=== PATIENT | female | born 1965 | race Caucasian/White ===

== ENCOUNTER 2020-12-19 09:42 | Outpatient (REF) | payer OTHER, SELFPAY ==
[2020-12-19 11:26] LABS: Hematocrit 38.5 % (37-47); Hemoglobin 12.7 g/dl (12.0-16.0); Mean Corpuscular Hemoglobin 29.8 pg (27.0-33.0); Mean Corpuscular Volume 90.4 fL (80-98); Mean Platelet Volume 9.1 fL (9.4-12.3); Platelet Count 384 X10*3/uL (160-400); Red Blood Count 4.26 X10*6/uL (4.20-5.50); Red Cell Distribution Width 12.5 % (11.0-16.0); White Blood Count 10.7 X10*3/uL (4.8-10.8)
[2020-12-19 12:11] LABS: Alanine Aminotransferase 25 U/L (0-31); Albumin Level 4.4 g/dL (3.5-5.0); Alkaline Phosphatase 66 U/L (39-117); Anion Gap 12 (12-20); Aspartate Amino Transferase 15 U/L (5-31); Bilirubin Total 0.4 mg/dL (0.0-1.0); Blood Urea Nitrogen 16 mg/dL (9-16); Calcium 9.6 mg/dL (8.4-10.2); Carbon Dioxide 27 mmol/L (22-29); Chloride 106 mmol/L (96-108); Estimated Glomerular Filt Rate > 60; Glucose Random 265 mg/dL (60-115); Sodium 140 mmol/L (135-145); Total Protein 6.8 g/dL (6.5-8.0)
== END 2020-12-19 09:43 | disposition home or self-care (01) ==
LOC: HO.LAB 09:42
PROVIDERS: PCP Internal Medicine; Visit Provider Nurse Practitioner Family
DX: R13.10 Dysphagia, unspecified (principal); K21.9 Gastro-esophageal reflux disease without esophagitis; K59.00 Constipation, unspecified
CPT/HCPCS: 36415; 80053; 85027

== ENCOUNTER 2020-12-31 12:42 | Day surgery (SDC) | payer OTHER, SELFPAY ==
[2020-12-25 10:29] VITALS: BMI 33.8
--- NOTE | 2020-12-30 10:27 | P.CONAN_ITS ---
Documented by User: Ramya De Leon 12/30/20 10:32 HPI - Anesthesia Eval Consult details Narrative: 55yo F for Upper Endoscopy 11/28/20: Stable routine cardiac visit for BP, palpitations (increased palps r/t social stressors and no change in medication). Suspect pulmonary cause for ch ronic dyspnea r/t hx of viral pna and untreated LISSET. [facility], [facility] Past Medical History Medical History (Updated 12/30/20 @ 10:32 by Ramya De Leon) Allergic rhinitis Anxiety COVID-19 vaccine series completed Depression Dysphagia GERD (gastroesophageal reflux disease) HTN (hypertension) Hx of viral pneumonia Hyperlipidemia Hypothyroidism LISSET (obstructive sleep apnea) Palpitations Paroxysmal supraventricular tachycardia Type II diabetes mellitus Vitamin D deficiency Surgical History Surgical History (Updated 12/25/20 @ 09:32 by Rosenda Gallegos) History of carpal tunnel release Hx of elbow surgery Hx of shoulder surgery Hx of unilateral salpingectomy Social History Social History Are you a primary child day care center worker to a significant other at home: No Do you presently have visiting nurse or other home services: No Patient Tobacco Use Status: Former Tobacco user Quit Date: Age 26 Tobacco use type: Cigarette Use of substances other than those prescribed or required for medical reasons: No Substance Use Type Other:: Marijuana- Bedtime for sleep Substance Use Frequency: Daily Have you been hit, kicked, punched, or otherwise hurt by someone within the past year? If so, by whom?: No Are you DNR?: No Advance Directives: No Advance Directives Information Provided: No Advance Directives on File: No Recently lost weight without trying: No Eating poorly because of decreased appetite: No Nutrition Risks: Difficulty swallowing Patient : No Meds Allergies Allergy/AdvReac Type Severity Reaction Status Date / Time codeine Allergy Unknown NAUSEA Verified 12/31/20 13:02 clindamycin Allergy Unknown Verified 12/31/20 13:02 doxycycline Allergy Unknown Verified 12/31/20 13:02 erythromycin base Allergy Rash Verified 12/31/20 13:04 vancomycin Allergy Unknown Verified 12/31/20 13:02 Home Medications Medication Instructions Recorded Confirmed Last Taken Type atorvastatin 40 mg tablet 40 mg PO DAILY 12/19/20 12/25/20 Unknown History cetirizine 10 mg capsule 10 mg PO DAILY PRN 12/19/20 12/25/20 Unknown History cholecalciferol (vitamin D3) 25 25 mcg PO DAILY 12/19/20 12/25/20 Unknown History mcg (1,000 unit) capsule citalopram 40 mg tablet 40 mg PO DAILY 12/19/20 12/25/20 Unknown History cyclobenzaprine 10 mg tablet 10 mg PO BEDTIME 12/19/20 12/25/20 Unknown History diltiazem HCl 180 mg 180 mg PO DAILY 12/19/20 12/25/20 Unknown History capsule,extended release 24 hr docusate sodium 100 mg capsule 100 mg PO DAILY 12/19/20 12/25/20 Unknown History dulaglutide 0.75 mg/0.5 mL 0.75 mg SUBCUT QWEEK 12/19/20 12/25/20 Unknown History subcutaneous pen injector fluticasone propionate 50 1 spray INTRANASAL BID 12/19/20 12/25/20 Unknown History mcg/actuation nasal spray,suspension insulin lispro 100 unit/mL 5 unit SUBCUT TID 12/19/20 12/25/20 Unknown History subcutaneous cartridge levothyroxine 50 mcg capsule 50 mcg PO DAILY 12/19/20 12/25/20 Unknown History lorazepam 0.5 mg tablet 0.5 mg PO BEDTIME PRN 12/19/20 12/25/20 Unknown History montelukast 10 mg tablet 10 mg PO DAILY 12/19/20 12/25/20 Unknown History omeprazole 40 mg capsule,delayed 40 mg PO DAILY 12/19/20 12/25/20 Unknown History release mmnmflecj-yxiatl-givokrhh-scop 7.5 ml PO Q6H PRN 12/19/20 12/25/20 Unknown History 16.2 mg-0.1037 mg-0.0194 mg/5 mL elixir trazodone 50 mg tablet 50 mg PO DAILY 12/19/20 12/25/20 Unknown History insulin glargine [Lantus Solostar 60 unit SUBCUT BEDTIME 12/25/20 12/25/20 Unknown History U-100 Insulin] Exam Exam Date and Time: December 30, 2020 1027 Height,Weight and Vital Signs: Height 5 ft 3 in Weight 86.636 kg Pertinent Lab Results Pertinent Lab Results: Laboratory Tests 12/19/20 12/19/20 10:45 10:45 WBC 10.7 Hgb 12.7 Hct 38.5 Plt Count 384 Sodium 140 Potassium 5.0 Chloride 106 Carbon Dioxide 27 BUN 16 Creatinine 0.88 Assessment and Plan Assessment Anesthesia Assessment: Chart Reviewed Documented by User: Alley Calderon 12/31/20 13:39 [facility] Past Medical History Medical History (Updated 12/30/20 @ 10:32 by Ramya De Leon) Allergic rhinitis Anxiety COVID-19 vaccine series completed Depression Dysphagia GERD (gastroesophageal reflux disease) HTN (hypertension) Hx of viral pneumonia Hyperlipidemia Hypothyroidism LISSET (obstructive sleep apnea) Palpitations Paroxysmal supraventricular tachycardia Type II diabetes mellitus Vitamin D deficiency Surgical History Surgical History (Updated 12/25/20 @ 09:32 by Rosenda Gallegos) History of carpal tunnel release Hx of elbow surgery Hx of shoulder surgery Hx of unilateral salpingectomy Social History Social History Are you a primary child day care center worker to a significant other at home: No Do you presently have visiting nurse or other home services: No Patient Tobacco Use Status: Former Tobacco user Quit Date: Age 26 Tobacco use type: Cigarette Use of substances other than those prescribed or required for medical reasons: No Substance Use Type Other:: Marijuana- Bedtime for sleep Substance Use Frequency: Daily Have you been hit, kicked, punched, or otherwise hurt by someone within the past year? If so, by whom?: No Are you DNR?: No Advance Directives: No Advance Directives Information Provided: No Advance Directives on File: No Recently lost weight without trying: No Eating poorly because of decreased appetite: No Nutrition Risks: Difficulty swallowing Patient : No Meds Allergies Allergy/AdvReac Type Severity Reaction Status Date / Time codeine Allergy Unknown NAUSEA Verified 12/31/20 13:02 clindamycin Allergy Unknown Verified 12/31/20 13:02 doxycycline Allergy Unknown Verified 12/31/20 13:02 erythromycin base Allergy Rash Verified 12/31/20 13:04 vancomycin Allergy Unknown Verified 12/31/20 13:02 Home Medications Medication Instructions Recorded Confirmed Last Taken Type atorvastatin 40 mg tablet 40 mg PO DAILY 12/19/20 12/25/20 Unknown History cetirizine 10 mg capsule 10 mg PO DAILY PRN 12/19/20 12/25/20 Unknown History cholecalciferol (vitamin D3) 25 25 mcg PO DAILY 12/19/20 12/25/20 Unknown History mcg (1,000 unit) capsule citalopram 40 mg tablet 40 mg PO DAILY 12/19/20 12/25/20 Unknown History cyclobenzaprine 10 mg tablet 10 mg PO BEDTIME 12/19/20 12/25/20 Unknown History diltiazem HCl 180 mg 180 mg PO DAILY 12/19/20 12/25/20 Unknown History capsule,extended release 24 hr docusate sodium 100 mg capsule 100 mg PO DAILY 12/19/20 12/25/20 Unknown History dulaglutide 0.75 mg/0.5 mL 0.75 mg SUBCUT QWEEK 12/19/20 12/25/20 Unknown History subcutaneous pen injector fluticasone propionate 50 1 spray INTRANASAL BID 12/19/20 12/25/20 Unknown History mcg/actuation nasal spray,suspension insulin lispro 100 unit/mL 5 unit SUBCUT TID 12/19/20 12/25/20 Unknown History subcutaneous cartridge levothyroxine 50 mcg capsule 50 mcg PO DAILY 12/19/20 12/25/20 Unknown History lorazepam 0.5 mg tablet 0.5 mg PO BEDTIME PRN 12/19/20 12/25/20 Unknown History montelukast 10 mg tablet 10 mg PO DAILY 12/19/20 12/25/20 Unknown History omeprazole 40 mg capsule,delayed 40 mg PO DAILY 12/19/20 12/25/20 Unknown History release ylmntkrfd-nxtdez-fgbnessr-scop 7.5 ml PO Q6H PRN 12/19/20 12/25/20 Unknown History 16.2 mg-0.1037 mg-0.0194 mg/5 mL elixir trazodone 50 mg tablet 50 mg PO DAILY 12/19/20 12/25/20 Unknown History insulin glargine [Lantus Solostar 60 unit SUBCUT BEDTIME 12/25/20 12/25/20 Unknown History U-100 Insulin] Exam Airway Mallampati Class: II (Missing multiple teeth) TM Dist: >3cm Neck ROM: Full Heart: rrr Lungs: cta Assessment and Plan Assessment Anesthesia Assessment: Anesthesia Plan Discussed and Chart Reviewed Final Anesthetic Review NPO: Yes ASA Class: III Final Preanesthetic Review: No Changes in Pt Med Stat and Consent Obtained/Reviewed Patient Risk: Intermediate Procedure Risk: Intermediate Anesthetic Plan Anesthetic Plan: MAC: Disposition: Standard PACU
--- NOTE | 2020-12-31 13:01 | MHC.SHP ---
Pre-Procedural Eval Section B Chief Complaint: Dysphagia Relevant Family History (Specify if Yes): No Relevant Social History: Other (specify) (THC) Present Medications: see Short Stay Collaborative assessment Medical History: Significant History (Allergic rhinitis Anxiety COVID-19 vaccine series completed Depression Dysphagia GERD (gastroesophageal reflux disease) HTN (hypertension) Hx of viral pneumonia Hyperlipidemia Hypothyroidism LISSET (obstructive sleep apnea) Palpitations Paroxysmal supraventricular tachycardia Type II diabetes mellitus ) History of Previous Operations: Relevant previous surgery/procedure and date(s) (History of carpal tunnel release Hx of elbow surgery Hx of shoulder surgery Hx of unilateral salpingectomy) Allergies: Allergies Allergy/AdvReac Type Severity Reaction Status Date / Time codeine Allergy Unknown NAUSEA Verified 12/11/15 00:00 clindamycin Allergy Unknown Verified 12/25/20 16:19 doxycycline Allergy Unknown Verified 12/25/20 16:19 vancomycin Allergy Unknown Verified 12/25/20 16:19 Review of Systems Sugical H&P ROS: Negative: Constitution, Cardiovascular, Respiratory, Neurological, Psychiatric, Hem-Onc, Allergic/Immunologic, Gastrointestinal, Genitourinary, Musculoskeletal, Integumentary, Endocrine and Eyes/Ears/Nose/Throat Exam Surgical H&P Exam: Normal: HEENT, Normal: Heart, Normal: Lungs, Normal: Extremities, Normal: Abdomen, Normal: Skin and Normal: Neurological Plan Diagnosis/Plan: Unchanged I have reviewed the history and physical and performed a pertinent physical examination on my patient. No changes have occurred unless specified.
[2020-12-31 13:07] VITALS: BMI 33.6
[2020-12-31 13:17] VITALS: BP 134/83; PULSE 79; RESP 18; TEMP 36.9; O2SAT 97
[2020-12-31 13:19] LABS: Glucose, Whole Blood 123 mg/dL (60-115)
[2020-12-31] MEDS: Lactated Ringers 1,000 ML 100 ML IVCONT (13:27)
--- NOTE | 2020-12-31 13:43 | PM.OP ---
Brief Operative Note Date of Service: 12/31/20 Pre-op diagnosis: dysphagia Post-op diagnosis: same Procedure: see op note Surgeon: Giovanna Llanes MD Anesthesia: MAC Was an Seafood Processor used for this Procedure?: No Estimated blood loss (mL): 0 Condition: stable Disposition: PACU
--- NOTE | 2020-12-31 13:44 | W.PM.OPN ---
Operative Note Operative Note Date of Service: 12/31/20 Narrative: Procedure Description: EGD FLEXIBLE TRANSORAL UPPER GASTROINTESTINAL ENDOSCOPY UPPER ENDOSCOPY Consent: Indications for the procedure and potential complications of bleeding, perforation, reaction to medications and missed diagnosis were discussed with the patient and informed consent was obtained. Instrument: Olympus GIF H 190 J mid size upper endoscope Monitoring: Vital signs and clinical assessment, continuous EKG monitoring, Pulse oximetry, Carbon Dioxide monitoring and blood pressure monitoring were done throughout the procedure. Procedure: The patient was placed in the left lateral decubitis position and pre-procedure medications were administered and a bite block was placed. The endoscope was inserted into the mouth and advanced under direct vision to the third part of duodenum. A careful inspection was made as the upper endoscope was withdrawn including a retroflexed examination of the proximal stomach; Findings and interventions are described below. Findings: Larynx:normal Esophagus: GE junction at 30 cm, diaphragm hiatus at 35 cm, 5 cm sliding hiatal hernia noted, bx taken from distal and proximal esophagus in separate jars, also small inlet patch noted. The LES and UES were both dilated using a balloon to 20 mm, no tear seen but resistance felt. There was prominent venous bleb noted in the proximal esophagus, suspect this was what was seen on the ba swallow. Stomach: Patchy gastric erythema in the pre antrum area. Biopsies were obtained. Grade 2 flap valve on retroflexed examination of the cardia. Duodenum: Normal bulb and descending duodenum, bx taken Intervention: Biopsies as noted above, balloon dilation Impression/Findings: gastritis hiatal hernia PLAN: await bx results, consider changing PPI, review how she takes it or increase to BID consider Ct chest due to prominent venous bleb noted.
[2020-12-31 14:11] VITALS: BP 125/70; PULSE 83; RESP 16; TEMP 36.8; O2SAT 97
[2020-12-31 14:55] VITALS: BP 125/81; PULSE 77; RESP 15; TEMP 36.8; O2SAT 100
== END 2020-12-31 15:15 | disposition home or self-care (01) ==
PROVIDERS: PCP Internal Medicine; Visit Provider Internal Medicine Gastroenterology
PROC: 0DJ08ZZ Inspection of Upper Intestinal Tract, Via Natural or Artificial Opening Endoscopic (ICD-10-PCS; CPT 43235; principal; 2020-12-31 13:50)
DX: K22.2 Esophageal obstruction (principal); K29.50 Unspecified chronic gastritis without bleeding; K44.9 Diaphragmatic hernia without obstruction or gangrene; Q39.8 Other congenital malformations of esophagus; I10 Essential (primary) hypertension; G47.33 Obstructive sleep apnea (adult) (pediatric); E55.9 Vitamin D deficiency, unspecified; E11.9 Type 2 diabetes mellitus without complications; I47.9 Paroxysmal tachycardia, unspecified; E78.5 Hyperlipidemia, unspecified; J30.9 Allergic rhinitis, unspecified; Z79.4 Long term (current) use of insulin; Z79.899 Other long term (current) drug therapy
CPT/HCPCS: 43249; 43239; 82947; 88305; 88342; C1726

== ENCOUNTER → 2021-01-09 10:50 | Outpatient (BNVA) | payer OTHER, SELFPAY | PROVIDERS: PCP Internal Medicine; Visit Provider Internal Medicine Gastroenterology ==

== ENCOUNTER 2021-01-14 10:37 | Outpatient (REF) | payer OTHER, SELFPAY ==
--- NOTE | ~2021-01-14 | CT_ITS ---
EXAMINATION: CT CHEST WITH CONTRAST CLINICAL INFORMATION: Dysphagia COMPARISON: None TECHNIQUE: Multidetector volumetric CT imaging of the chest was obtained after the administration of 65 mL of Omnipaque 350 intravenous contrast without immediate adverse reactions. Axial MIP volume rendering provided. Sagittal and coronal reformatted images were obtained. This CT examination was performed using dose optimization techniques as appropriate, variously including the following: *Automated exposure control *Adjustment of mA and/or kV according to patient size (this includes techniques or standardized protocols for targeted exams where dose is matched to indication/reason for exam; i.e. extremities or head) *Use of iterative reconstruction technique DLP: 388 mGy-cm FINDINGS: LUNGS: The lungs are clear with no evidence of inflammation or nodules. MEDIASTINUM: The heart does not appear enlarged. There is a trace pericardial effusion. The thoracic aorta is normal in caliber. There are no enlarged hilar or mediastinal lymph nodes. No mass is seen. The esophagus is unremarkable. PLEURA: There is no pleural effusion. No pleural mass or thickening. AXILLA: No lymphadenopathy. UPPER ABDOMEN: There is fatty infiltration of the pancreas. There is diverticulosis of the colon. OSSEOUS STRUCTURES: There are degenerative changes of the thoracic spine curvature to the right. CT/CT chest w con IMPRESSION: No esophageal mass. Trace pericardial effusion.
[2021-01-14] MEDS: iohexoL 350 MG/ML 100 ML INFUS..BTL IV (11:29)
== END 2021-01-14 10:38 | disposition home or self-care (01) ==
LOC: HO.CT 10:37
PROVIDERS: Visit Provider Internal Medicine Gastroenterology
DX: R13.10 Dysphagia, unspecified (principal)
CPT/HCPCS: 71260; Q9967

== ENCOUNTER → 2021-04-14 10:44 | Outpatient (BNVA) | payer OTHER, SELFPAY | PROVIDERS: PCP Nurse Practitioner Family; Visit Provider Internal Medicine Gastroenterology ==

== ENCOUNTER 2021-05-11 14:37 | Outpatient (REF) | payer OTHER, SELFPAY ==
--- NOTE | ~2021-05-11 | FL_ITS ---
EXAMINATION: XR BARIUM SWALLOW CLINICAL INFORMATION: Dysphagia. COMPARISON: None. TECHNIQUE/FINDINGS: Fluoroscopic guidance was provided for modified barium swallow performed by the speech and hearing department. No aspiration or penetration was seen with any media. Please see speech and hearing report for detailed findings. FLUOROSCOPY TIME: 0.9 minutes. DOSE AREA PRODUCT: 1 Gy-cm2. FL/FL barium swallow modified IMPRESSION: Fluoroscopic guidance for modified barium swallow performed by the speech and hearing department.
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
== END 2021-05-11 14:38 | disposition home or self-care (01) ==
LOC: HO.XRAY 14:37
PROVIDERS: Visit Provider Internal Medicine Gastroenterology
DX: R13.10 Dysphagia, unspecified (principal)
CPT/HCPCS: 74230; 92611

== ENCOUNTER → 2021-06-29 09:56 | Outpatient (BNVA) | payer OTHER, SELFPAY | PROVIDERS: PCP Nurse Practitioner Family; Referring Provider Nurse Practitioner Family; Visit Provider Internal Medicine Gastroenterology ==

== ENCOUNTER → 2021-12-15 16:03 | Outpatient (BNVA) | payer MEDICAID, SELFPAY | PROVIDERS: PCP Nurse Practitioner Family; Referring Provider Nurse Practitioner Family; Visit Provider Physician Assistant | DX: Z13.89 Encounter for screening for other disorder (principal) ==

== ENCOUNTER → 2021-12-28 15:34 | Outpatient (BNVA) | payer MEDICAID, SELFPAY | PROVIDERS: PCP Nurse Practitioner Family; Visit Provider Nurse Practitioner Family | DX: Z12.11 Encounter for screening for malignant neoplasm of colon (principal); K44.9 Diaphragmatic hernia without obstruction or gangrene; R13.14 Dysphagia, pharyngoesophageal phase; K21.9 Gastro-esophageal reflux disease without esophagitis; K58.2 Mixed irritable bowel syndrome; K59.00 Constipation, unspecified | CPT/HCPCS: 99212 ==

== ENCOUNTER → 2022-01-01 14:29 | Outpatient (BNVA) | payer MEDICAID, SELFPAY | PROVIDERS: PCP Nurse Practitioner Family; Visit Provider Physician Assistant Surgical | DX: E66.9 Obesity, unspecified (principal); Z68.34 Body mass index [BMI] 34.0-34.9, adult | CPT/HCPCS: 99202 ==

== ENCOUNTER → 2022-01-13 15:15 | Outpatient (BNVA) | payer OTHER, SELFPAY | PROVIDERS: PCP Nurse Practitioner Family; Visit Provider Counselor Mental Health | DX: F41.1 Generalized anxiety disorder (principal); F50.81 Binge eating disorder; E66.9 Obesity, unspecified | CPT/HCPCS: 90791 ==

== ENCOUNTER → 2022-01-27 13:36 | Outpatient (BNVA) | payer MEDICAID, SELFPAY | PROVIDERS: PCP Nurse Practitioner Family; Visit Provider Physician Assistant Surgical | DX: E66.9 Obesity, unspecified (principal); Z68.33 Body mass index [BMI] 33.0-33.9, adult | CPT/HCPCS: 99212 ==

== ENCOUNTER 2022-02-01 12:33 | Outpatient (REF) | payer MEDICAID, SELFPAY ==
--- NOTE | ~2022-02-01 | XR_ITS ---
EXAMINATION: XR CHEST CLINICAL INFORMATION: Bariatric service evaluation. COMPARISON: Chest CT 01/14/2021 TECHNIQUE: 2 views of the chest were obtained. FINDINGS: There is a short fine linear scar left lateral base similar to CT 2020. There is no lobar or segmental airspace consolidation or ground-glass opacity or effusion. The costophrenic sulci are clear. The heart is normal in size. The hilar and mediastinal contours and visualized bony structures are unremarkable. XR/XR chest 2V IMPRESSION: Unremarkable examination.
[2022-02-01 12:49] LABS: MANUAL DIFF FLAG NO
--- NOTE | 2022-02-01 12:50 | ECG_ITS ---
Test Reason : E66.9 Blood Pressure : / mmHG Vent. Rate : 075 BPM Atrial Rate : 075 BPM P-R Int : 172 ms QRS Dur : 070 ms QT Int : 376 ms P-R-T Axes : 053 007 025 degrees QTc Int : 419 ms Normal sinus rhythm Normal EKG No previous ECGs available Referred By: Sonny Garcia Electronically Signed By:MISTI DELGADO
[2022-02-01 13:14] LABS: Basophils Percent Auto 0.2 % (0-2); Eosinophils Percent Auto 0.4 % (0-4); Hematocrit 39.2 % (37.0-47.0); Hemoglobin 12.9 g/dl (12.0-16.0); Imm Gran Abs Auto 0.03 X10*3/uL (0.00-0.03); Imm Gran Pct Auto 0.4 % (0.0-0.4); Lymphocytes Absolute Auto 1.7 X10*3/uL (1.2-4.9); Lymphocytes Percent Auto 20.9 % (20-40); Mean Corpuscular HGB Conc 32.9 g/dl (31.0-35.0); Mean Corpuscular Hemoglobin 30.1 pg (27.0-33.0); Mean Corpuscular Volume 91.4 fL (80.0-98.0); Mean Platelet Volume 8.6 fL (9.4-12.3); Monocytes Absolute Auto 0.7 X10*3/uL (0.1-1.2); Monocytes Percent Auto 7.9 % (2-11); Neutrophils Absolute Auto 5.8 x10*3/uL (2.0-8.3); Neutrophils Percent Auto 70.2 % (45-73); Platelet Count 341 X10*3/uL (160-400); Red Blood Count 4.29 X10*6/uL (4.20-5.50); Red Cell Distribution Width 13.2 % (11.0-16.0); White Blood Count 8.2 X10*3/uL (4.8-10.8)
[2022-02-01 13:35] LABS: Estimated Average Glucose 134 mg/dL; Hemoglobin A1c % 6.3 %
[2022-02-01 13:43] LABS: Alanine Aminotransferase 34 U/L (0-31); Albumin Level 4.2 g/dL (3.5-5.0); Alkaline Phosphatase 54 U/L (39-117); Anion Gap 12 (12-20); Aspartate Amino Transferase 22 U/L (5-31); Bilirubin Total 0.4 mg/dL (0.0-1.0); Blood Urea Nitrogen 17 mg/dL (9-16); C Reactive Protein 0.26 mg/dL (< or = 0.50); Calcium 9.4 mg/dL (8.4-10.2); Carbon Dioxide 26 mmol/L (22-29); Chloride 107 mmol/L (96-108); Cholesterol 165 mg/dL; Estimated Glomerular Filt Rate > 60; Glucose Random 147 mg/dL (60-115); HDL Cholesterol 51 mg/dL; Iron 70 mcg/dL (30-160); LDL Cholesterol Calculated 86 mg/dl; Percent Iron Saturation 20 % (15-50); Sodium 141 mmol/L (135-145); Total Iron Binding Capacity 343 mcg/dL (228-428); Total Protein 6.7 g/dL (6.5-8.0); Triglycerides 141 mg/dL; Unsaturated Iron Binding 273 ug/dL
[2022-02-01 13:58] LABS: Ferritin 39 ng/mL (10-250); Insulin 46 uU/mL (2-29); Vitamin D 25-OH Total 49.3 ng/mL (>30)
[2022-02-01 14:41] LABS: Folate 19.8 ng/mL (> or = 4.0); Vitamin B12 668 pg/mL (200-900)
[2022-02-02 11:22] LABS: Calcium (PTHI) 9.5 mg/dL (8.6-10.4); PTHI 50 pg/mL (16-77)
[2022-02-05 06:07] LABS: Zinc 82 mcg/dL (60-130)
[2022-02-06 01:37] LABS: Vitamin A 48 mcg/dL (38-98)
[2022-02-06 10:36] LABS: Vitamin B1 11 nmol/L (8-30)
== END 2022-02-01 12:34 | disposition home or self-care (01) ==
LOC: HO.LAB 12:33
PROVIDERS: PCP Nurse Practitioner Family; Visit Provider Physician Assistant Surgical
DX: E66.9 Obesity, unspecified (principal); F41.1 Generalized anxiety disorder; F50.81 Binge eating disorder
CPT/HCPCS: 36415; 71046; 80053; 80061; 82306; 82607; 82728; 82746; 83036; 83525; 83540; 83970; 84425; 84443; 84590; 84630; 85025; 86140; 90834; 93005

== ENCOUNTER → 2022-02-17 10:46 | Outpatient (BNVA) | payer MEDICAID, SELFPAY | PROVIDERS: PCP Nurse Practitioner Family; Visit Provider Physician Assistant Surgical | DX: E66.9 Obesity, unspecified (principal); Z68.33 Body mass index [BMI] 33.0-33.9, adult | CPT/HCPCS: 99212 ==

== ENCOUNTER → 2022-02-18 15:01 | Outpatient (BNVA) | payer MEDICAID, SELFPAY | PROVIDERS: PCP Nurse Practitioner Family; Visit Provider Dietitian, Registered | DX: E66.9 Obesity, unspecified (principal); Z71.3 Dietary counseling and surveillance | CPT/HCPCS: 97802 ==

== ENCOUNTER 2022-02-22 10:26 | Outpatient (REF) | payer MEDICAID, SELFPAY ==
--- NOTE | ~2022-02-22 | FL_ITS ---
EXAMINATION: XR FLUOROSCOPY UPPER GI WITH AIR CLINICAL INFORMATION: Obesity. Patient gives history of achalasia. COMPARISON: None TECHNIQUE: The patient was administered thin and thick barium and effervescent granules. Barium tablet was also administered. FINDINGS: There is abnormal esophageal motility. There is a small sliding-type hiatal hernia. There is mild gastroesophageal reflux. Patient had difficulty swallowing the barium tablet but it passed freely into the stomach. There is a small duodenal diverticulum arising from the second portion of the duodenum. The stomach and duodenum are otherwise normal. No fold thickening, mass, ulcer or stricture is seen. FLUOROSCOPY TIME: 1.2 minutes DOSE AREA PRODUCT: 9.7 schmid per centimeter squared. FL/FL upper GI w air IMPRESSION: Very abnormal esophageal motility. Small sliding-type hiatal hernia. Mild gastroesophageal reflux.
== END 2022-02-22 10:27 | disposition home or self-care (01) ==
LOC: HO.US 10:26
PROVIDERS: Visit Provider Physician Assistant Surgical
DX: Z01.818 Encounter for other preprocedural examination (principal); E66.9 Obesity, unspecified
CPT/HCPCS: 74246

== ENCOUNTER 2024-04-20 10:30 | Outpatient (AMB) | payer MEDICAID, SELFPAY ==
--- NOTE | 2024-04-20 10:31 | MHC.OFFVIS ---
Vital Signs 04/20/24 10:40 Height 5 ft 3 in Weight 155 lb BMI 27.5 BP 137/71 Blood Pressure Location Rt brachial Position Sitting Pulse 99 Intake Visit Reasons: Abdominal and Umbilical hernias Intake Note: Patient referred for abdominal and umbilical hernia. Present for more than 1yr. Patient c/o: pain X1yr, nausea. Physicist Cryogenics Required: No Accompanied by: Self / Same As Patient Allergies codeine Allergy (Unknown, Verified 04/20/24 10:36) NAUSEA clindamycin Allergy (Verified 04/20/24 10:36) Unknown doxycycline Allergy (Verified 04/20/24 10:36) Unknown erythromycin base Allergy (Verified 04/20/24 10:36) Rash vancomycin Allergy (Verified 04/20/24 10:36) Unknown HPI Comments Details: Patient presents for evaluation of both in umbilical left inguinal hernia. She has had these at least 1 year's time. They are both increasing in size, become more symptomatic. She would like to have him repair. Patient otherwise is tolerating a diet. She has occasional reflux symptoms. She has regular bowel habits. Chart was reviewed and patient evaluated. Patient has had multiple surgeries in the past including Orthopedic, (shoulder surgery x3), nutcracker esophagus, esophageal hiatal hernia. Diabetes among other comorbidities. [facility]LY [facility] Medical History Hx of viral pneumonia Palpitations COVID-19 vaccine series completed Dysphagia GERD (gastroesophageal reflux disease) LISSET (obstructive sleep apnea) Paroxysmal supraventricular tachycardia Vitamin D deficiency Allergic rhinitis Depression Anxiety Hypothyroidism Hyperlipidemia HTN (hypertension) Type II diabetes mellitus Surgical History (Updated 04/20/24 @ 10:58 by Jair Bray MD) H/O right knee surgery History of esophagogastroduodenoscopy (EGD) Hx of shoulder surgery Hx of elbow surgery History of carpal tunnel release Hx of unilateral salpingectomy Family History Mother Diabetes High cholesterol Social History Are you a primary home health care worker to a significant other at home: No Do you presently have visiting nurse or other home services: No Alcohol intake: never Patient Tobacco Use Status: Former Tobacco user Tobacco use type: Cigarette Physical Exam Vital Signs: Last Vital Signs Pulse 99 04/20/24 10:40 BP 137/71 04/20/24 10:40 BMI result Body Mass Index 27.5 Chest Other: Chest breath sounds bilaterally, HS 1 in 2 GI Other: Patient was examined both supine and standing with Valsalva. Very corpulent abdomen. Moderately sized pannus. Patient has her glucometer and sugar measuring devices in the right mid abdomen. Roughly 2 cm reducible umbilical hernia. Reducible left inguinal hernia. Right groin negative. Abdomen otherwise benign. Assessment & Plan Assessment & Plan (1) Umbilical hernia: Code(s): K42.9 - Umbilical hernia without obstruction or gangrene Category: Surgical (2) Left inguinal hernia: Code(s): K40.90 - Unilateral inguinal hernia, without obstruction or gangrene, not specified as recurrent Category: Surgical Plan Risks, benefits, alternatives of umbilical hernia repair with mesh and left inguinal hernia repair with mesh were reviewed with the patient and included but not limited to bleeding, infection, recurrence, numbness, pain, scarring the patient wished to proceed. All questions answered. Arrangements were made for this on a day which is convenient for her. Coding Level of Care Code New Pt Level 5 (48922) Diagnoses Umbilical hernia K42.9 Left inguinal hernia K40.90
[2024-04-20 10:40] VITALS: BP 137/71; PULSE 99; BMI 27.5
== END 2024-04-20 11:14 | disposition home or self-care (01) ==
PROVIDERS: PCP Physician Assistant Medical; Visit Provider Surgery
DX: K42.9 Umbilical hernia without obstruction or gangrene (principal); K40.90 Unilateral inguinal hernia, without obstruction or gangrene, not specified as recurrent
CPT/HCPCS: 99205

== ENCOUNTER → 2024-04-20 10:30 | Outpatient (BNVA) | payer MEDICAID, SELFPAY | PROVIDERS: PCP Physician Assistant Medical; Visit Provider Surgery | DX: K42.9 Umbilical hernia without obstruction or gangrene (principal); K40.90 Unilateral inguinal hernia, without obstruction or gangrene, not specified as recurrent | CPT/HCPCS: 99202 ==

== ENCOUNTER → 2024-05-03 09:10 | Day surgery (SDC) | payer OTHER, SELFPAY ==
--- NOTE | 2024-05-03 09:42 | PC.NURSE ---
Patient in preop. States she took her Mounjaro injection yesterday, takes weekly. This medication not on current med list. Patient cancelled per anesthesia. Patient very upset. This nurse explained the risks associated with not holding this medication for 7 days as per policy. Med list reconciled, Mounjaro added to list. Patients ride called. Dr. Bray aware.
== END ==
PROVIDERS: PCP Physician Assistant Medical; Visit Provider Surgery
DX: K42.9 Umbilical hernia without obstruction or gangrene (principal); Z53.8 Procedure and treatment not carried out for other reasons; K40.90 Unilateral inguinal hernia, without obstruction or gangrene, not specified as recurrent

== ENCOUNTER 2024-05-10 10:12 | Day surgery (SDC) | payer OTHER, SELFPAY ==
[2024-05-10] VITALS (10 sets, daily range): BP systolic 116–141; BP diastolic 59–88; PULSE 63–89; RESP 11–18; TEMP 36.4–36.9; O2SAT 95–98; BMI 26.7
--- NOTE | 2024-05-10 05:32 | MHC.SHP ---
Pre-Procedural Eval Section A - 24 Hr Update-Section A only Date of Service: 05/10/24 The patient is an INPATIENT: No Changes since office visit: No Cold of Flu in the past 2 weeks, No New Medical Problems, No Changes in Medication and No Patient answered all questions Section B - Complete if H&P > 30 days Chief Complaint: umbilical and Inguinal hernia w/o obstruction Allergies: Allergies Allergy/AdvReac Type Severity Reaction Status Date / Time codeine Allergy Unknown NAUSEA Verified 04/20/24 10:36 clindamycin Allergy Unknown Verified 04/20/24 10:36 doxycycline Allergy Unknown Verified 04/20/24 10:36 erythromycin base Allergy Rash Verified 04/20/24 10:36 vancomycin Allergy Unknown Verified 04/20/24 10:36 Review of Systems Sugical H&P ROS: Negative: Constitution, Cardiovascular, Respiratory, Neurological, Psychiatric, Hem-Onc, Allergic/Immunologic, Gastrointestinal, Genitourinary, Musculoskeletal, Integumentary, Endocrine and Eyes/Ears/Nose/Throat Exam Surgical H&P Exam: Normal: HEENT, Normal: Heart, Normal: Lungs, Normal: Extremities, Normal: Abdomen, Normal: Skin and Normal: Neurological Plan I have reviewed the history and physical and performed a pertinent physical examination on my patient. No changes have occurred unless specified. Time Spent With Patient Time: Total time managing care of this patient today ____ minutes.
[2024-05-10 10:42] LABS: Glucose, Whole Blood 114 mg/dL (60-115)
[2024-05-10] MEDS: Lactated Ringers 1,000 ML 100 ML IVCONT (10:45)
--- NOTE | 2024-05-10 13:05 | HO.ANESPROP2 ---
Documented by User: Ramya De Leon NP 05/09/24 11:20 HPI - Anesthesia Eval Consult details Narrative: 59yo F for Left Hernia Inguinal Reducible, Hernia lap Umbilical Reducible with mesh Insulin pump in situ Anesthesia Pre-Procedure Meds Is the patient on any of the following meds?: GLP1/DPP4 PMFSH Active Problems Active Problems: All Active Problems Left inguinal hernia (Acute) Umbilical hernia (Acute) Binge-eating disorder, mild (Acute) Generalized anxiety disorder (Acute) Obesity (BMI 30-39.9) (Acute) Hiatal hernia (Acute) Dysphagia (Acute) Past Medical History Medical History (Updated 05/03/24 @ 09:39 by Kim Soto RN) Insulin pump in place Hx of viral pneumonia Palpitations COVID-19 vaccine series completed Dysphagia GERD (gastroesophageal reflux disease) LISSET (obstructive sleep apnea) Paroxysmal supraventricular tachycardia Vitamin D deficiency Allergic rhinitis Depression Anxiety Hypothyroidism Hyperlipidemia HTN (hypertension) Type II diabetes mellitus Family History Family History Mother Diabetes High cholesterol Surgical History Surgical History (Updated 04/20/24 @ 10:58 by Jair Bray MD) H/O right knee surgery History of esophagogastroduodenoscopy (EGD) Hx of shoulder surgery Hx of elbow surgery History of carpal tunnel release Hx of unilateral salpingectomy Social History Social History Are you a primary healthcare management consultant to a significant other at home: No Do you presently have visiting nurse or other home services: No Alcohol intake: never Patient Tobacco Use Status: Former Tobacco user Tobacco use type: Cigarette Have you been hit, kicked, punched, or otherwise hurt by someone within the past year? If so, by whom?: No Are you DNR?: No Advance Directives: No Advance Directives Information Provided: Yes Meds Allergies Allergy/AdvReac Type Severity Reaction Status Date / Time codeine Allergy Unknown NAUSEA Verified 04/20/24 10:36 clindamycin Allergy Unknown Verified 04/20/24 10:36 doxycycline Allergy Unknown Verified 04/20/24 10:36 erythromycin base Allergy Rash Verified 04/20/24 10:36 vancomycin Allergy Unknown Verified 04/20/24 10:36 Home Medications ?Medication ?Instructions ?Recorded ?Confirmed ?Last Taken ?Type atorvastatin 40 mg tablet 40 mg PO DAILY 12/19/20 05/03/24 Unknown History cetirizine 10 mg capsule (Zyrtec) 10 mg PO DAILY PRN Allergy Symptoms 12/19/20 05/03/24 Unknown History cholecalciferol (vitamin D3) 25 25 mcg PO DAILY 12/19/20 05/03/24 Unknown History mcg (1,000 unit) capsule citalopram 40 mg tablet 40 mg PO DAILY 12/19/20 05/03/24 Unknown History cyclobenzaprine 10 mg tablet 10 mg PO BEDTIME 12/19/20 05/03/24 Unknown History diltiazem HCl 180 mg 180 mg PO DAILY 12/19/20 05/03/24 Unknown History capsule,extended release 24 hr (Cardizem CD) insulin lispro 100 unit/mL unit subcut TID PRN Hyperglycemia 12/19/20 04/20/24 Unknown History subcutaneous cartridge (Humalog U-100 Insulin) levothyroxine 50 mcg capsule 50 mcg PO DAILY 12/19/20 05/03/24 Unknown History montelukast 10 mg tablet 10 mg PO DAILY 12/19/20 05/03/24 Unknown History sertraline 50 mg tablet 50 mg PO DAILY 04/20/24 05/03/24 Unknown History trazodone 150 mg tablet mg PO 04/20/24 04/20/24 Unknown History albuterol sulfate 90 mcg/actuation inhalation 05/03/24 05/03/24 Unknown History aerosol inhaler (Ventolin HFA) budesonide-formoterol HFA 80 inhalation 05/03/24 Unknown History mcg-4.5 mcg/actuation aerosol inhaler (Symbicort) enalapril maleate 5 mg tablet 5 mg PO DAILY 05/03/24 05/03/24 Unknown History pantoprazole 40 mg tablet,delayed 40 mg PO BID 05/03/24 05/03/24 Unknown History release tiotropium bromide 2.5 2 puff inhalation DAILY 05/03/24 05/03/24 Unknown History mcg/actuation mist for inhalation (Spiriva Respimat) tirzepatide 5 mg/0.5 mL mg subcut Q4W 05/03/24 05/02/24 History subcutaneous pen injector (Shon) Exam Pertinent Lab Results Pertinent Lab Results: CBC and CMP 10/2023 from outside facility [place] Narrative Narrative: EKG 10/2023 ST @ 110 Cannot r/o inf infarct No change c/w 2019 Assessment and Plan Assessment Anesthesia Assessment: Chart Reviewed Documented by User: Shauna Mendez DO 05/10/24 13:06 HPI - Anesthesia Eval Consult details Narrative: 59yo F for Left Hernia Inguinal Reducible, Hernia lap Umbilical Reducible with mesh Insulin pump in situ Smokes marijuana nightly Anesthesia Pre-Procedure Meds Is the patient on any of the following meds?: GLP1/DPP4 PMFSH Past Medical History Medical History (Updated 05/03/24 @ 09:39 by Kim Soto RN) Insulin pump in place Hx of viral pneumonia Palpitations COVID-19 vaccine series completed Dysphagia GERD (gastroesophageal reflux disease) LISSET (obstructive sleep apnea) Paroxysmal supraventricular tachycardia Vitamin D deficiency Allergic rhinitis Depression Anxiety Hypothyroidism Hyperlipidemia HTN (hypertension) Type II diabetes mellitus Family History Family History Mother Diabetes High cholesterol Family history of problems with anesthesia: No Surgical History Surgical History (Updated 04/20/24 @ 10:58 by Jair Bray MD) H/O right knee surgery History of esophagogastroduodenoscopy (EGD) Hx of shoulder surgery Hx of elbow surgery History of carpal tunnel release Hx of unilateral salpingectomy History of Problems with Anesthesia: No Social History Social History Are you a primary healthcare management consultant to a significant other at home: No Do you presently have visiting nurse or other home services: No Alcohol intake: never Patient Tobacco Use Status: Former Tobacco user Tobacco use type: Cigarette Have you been hit, kicked, punched, or otherwise hurt by someone within the past year? If so, by whom?: No Are you DNR?: No Advance Directives: No Advance Directives Information Provided: Yes Meds Allergies Allergy/AdvReac Type Severity Reaction Status Date / Time codeine Allergy Unknown NAUSEA Verified 04/20/24 10:36 clindamycin Allergy Unknown Verified 04/20/24 10:36 doxycycline Allergy Unknown Verified 04/20/24 10:36 erythromycin base Allergy Rash Verified 04/20/24 10:36 vancomycin Allergy Unknown Verified 04/20/24 10:36 Home Medications ?Medication ?Instructions ?Recorded ?Confirmed ?Last Taken ?Type atorvastatin 40 mg tablet 40 mg PO DAILY 12/19/20 05/03/24 Unknown History cetirizine 10 mg capsule (Zyrtec) 10 mg PO DAILY PRN Allergy Symptoms 12/19/20 05/03/24 Unknown History cholecalciferol (vitamin D3) 25 25 mcg PO DAILY 12/19/20 05/03/24 Unknown History mcg (1,000 unit) capsule citalopram 40 mg tablet 40 mg PO DAILY 12/19/20 05/03/24 Unknown History cyclobenzaprine 10 mg tablet 10 mg PO BEDTIME 12/19/20 05/03/24 Unknown History diltiazem HCl 180 mg 180 mg PO DAILY 12/19/20 05/03/24 Unknown History capsule,extended release 24 hr (Cardizem CD) insulin lispro 100 unit/mL unit subcut TID PRN Hyperglycemia 12/19/20 04/20/24 Unknown History subcutaneous cartridge (Humalog U-100 Insulin) levothyroxine 50 mcg capsule 50 mcg PO DAILY 12/19/20 05/03/24 Unknown History montelukast 10 mg tablet 10 mg PO DAILY 12/19/20 05/03/24 Unknown History sertraline 50 mg tablet 50 mg PO DAILY 04/20/24 05/03/24 Unknown History trazodone 150 mg tablet mg PO 04/20/24 04/20/24 Unknown History albuterol sulfate 90 mcg/actuation inhalation 05/03/24 05/03/24 Unknown History aerosol inhaler (Ventolin HFA) budesonide-formoterol HFA 80 inhalation 05/03/24 Unknown History mcg-4.5 mcg/actuation aerosol inhaler (Symbicort) enalapril maleate 5 mg tablet 5 mg PO DAILY 05/03/24 05/03/24 Unknown History pantoprazole 40 mg tablet,delayed 40 mg PO BID 05/03/24 05/03/24 Unknown History release tiotropium bromide 2.5 2 puff inhalation DAILY 05/03/24 05/03/24 Unknown History mcg/actuation mist for inhalation (Spiriva Respimat) tirzepatide 5 mg/0.5 mL mg subcut Q4W 05/03/24 05/02/24 History subcutaneous pen injector (Shon) Exam Exam Date and Time: 05/10/24 1303 Height,Weight and Vital Signs: Height 5 ft 3 in Weight 68.492 kg Vital Signs Temperature 98.5 F 05/10/24 10:30 Pulse Rate 77 05/10/24 10:30 Respiratory Rate 18 05/10/24 10:30 Blood Pressure 116/65 05/10/24 10:30 Pulse Oximetry 98 05/10/24 10:30 Oxygen Delivery Method Room Air 05/10/24 10:30 Temperature 98.5 F 05/10/24 10:30 Pulse Rate 77 05/10/24 10:30 Respiratory Rate 18 05/10/24 10:30 Blood Pressure 116/65 05/10/24 10:30 Pulse Oximetry 98 05/10/24 10:30 Oxygen Delivery Method Room Air 05/10/24 10:30 Airway Mallampati Class: I TM Dist: >3cm Neck ROM: Full Loose/Missing/Broken Teeth: Yes (broken molar right upper jaw) Heart: S1S2 Lungs: CTAB Assessment and Plan Assessment Anesthesia Assessment: Anesthesia Plan Discussed and Chart Reviewed Final Anesthetic Review Family History of Problems with Anesthesia: No History of Problems with Anesthesia: No NPO: Yes ASA Class: II Final Preanesthetic Review: No Changes in Pt Med Stat, Meds/Allgs Chart Reviewed, Consent Obtained/Reviewed and Anes Risks/Benef Reviewed Patient Risk: Low Procedure Risk: Low Anesthetic Plan Anesthetic Plan: MAC: and Agree w/ Assess. and Plan Disposition: Standard PACU
--- NOTE | 2024-05-10 14:11 | P.OP_ITS ---
Operative Note Operative Note Date of Service: 05/10/24 Narrative: Preoperative diagnosis: [] 1. Symptomatic left inguinal hernia 2. Symptomatic umbilical hernia incarcerated Postop diagnosis: [] The same Procedure [] 1. Open left inguinal herniorrhaphy 2. Incarcerated umbilical monster iorrhaphy Surgeon: [] Asa Middle Stitcher: [] Type of Anesthesia: [] Mac Indication for surgery: [] 1. Incarcerated umbilical hernia with omental contents 2. Indirect left inguinal hernia. Corpulent abdomen Findings: [] Patient brought to the operating room, placed on operative table supine position, after an adequate level of MAC anesthesia was induced, the abdomen and left groin were prepped and draped in usual sterile fashion. Commencing in left groin, a small left para inguinal incision was made and carried down through skin, subcutaneous tissue, Darrius's fascia. External oblique fibers were opened their direction with care to isolate and preserve the ilioinguinal nerve throughout the procedure. A large reducible indirect hernia was demonstrated. No direct hernia. The indirect hernia was reduced. A Bard plug was placed in this defect and sutured inferiorly to the inguinal ligament, and superiorly to the transversalis fascia using interrupted 0 Ethibond suture. Wound was irrigated, secured hemostasis, and closed in the following manner; external oblique fascia was closed using running 2-0 Vicryl suture. Darrius's fascia was reapproximated using interrupted 3-0 Vicryl suture. Interrupted inverted deep dermal 3-0 Vicryl sutures followed by running subcuticular 4-0 Vicryl sutures were placed. Steri-Strips sterile dressings were applied. Next incarcerated umbilical hernia was approached using an infraumbilical incision which was carried down through skin, subcutaneous tissue, where hernia sac was identified, dissected off the posterior aspect of the umbilicus, and dissected down the fascia. Sac was opened were incarcerated omental contents were amputated using Bovie. Fascia margins were circumferentially cleared. A Bard mesh was placed in this defect, and the superficial layer of the mesh was circumferentially sutured to the surrounding fascia using 0 Ethibond suture. At completion, mesh was in good position with no gaps or tension. Wound was irrigated, secured hemostasis, and closed in the following manner; posterior aspect of the umbilicus was tacked to the wound floor using interrupted 3-0 Vicryl suture. Skin was closed using interrupted inverted dermal 3-0 Vicryl sutures followed by Steri-Strips and sterile dressings. Wounds were infiltrated at the beginning and at the end with 0.5% Marcaine/1% lidocaine. Sponge, needle, and instrument counts reported correct. Patient tolerated the procedure well and emerged from anesthesia stable condition. EBL minimal
[2024-05-10] MEDS: oxyCODONE HCl Immed Release 5 MG TABLET PO (14:24)
[2024-05-10] MEDS: fentaNYL citrate/PF 100 MCG/2 ML VIAL 50 MCG IVPUSH ×2 (14:32→14:37)
== END 2024-05-10 15:55 | disposition home or self-care (01) ==
PROVIDERS: PCP Physician Assistant Medical; Visit Provider Surgery
PROC: (CPT 49505; principal; 2024-05-10 13:00)
PROC: (CPT 49505; 2024-05-10 13:00)
DX: K40.90 Unilateral inguinal hernia, without obstruction or gangrene, not specified as recurrent (principal); K42.9 Umbilical hernia without obstruction or gangrene; K42.0 Umbilical hernia with obstruction, without gangrene; K44.9 Diaphragmatic hernia without obstruction or gangrene; K21.9 Gastro-esophageal reflux disease without esophagitis; I10 Essential (primary) hypertension; I47.10 Supraventricular tachycardia, unspecified; E11.9 Type 2 diabetes mellitus without complications; F41.1 Generalized anxiety disorder; F50.819 Binge eating disorder, unspecified; Z68.27 Body mass index [BMI] 27.0-27.9, adult; G47.33 Obstructive sleep apnea (adult) (pediatric); Z79.4 Long term (current) use of insulin; Z96.41 Presence of insulin pump (external) (internal); Z79.899 Other long term (current) drug therapy; Z88.5 Allergy status to narcotic agent; Z88.1 Allergy status to other antibiotic agents; Z87.891 Personal history of nicotine dependence
CPT/HCPCS: 49505; 49592; 82947; 88304; C1781; J0690; J1100; J1885; J2003; J2250; J2405; J2704; J2795; J3010

== ENCOUNTER → 2024-05-10 10:12 | Outpatient (BNV) | payer OTHER, SELFPAY | PROVIDERS: PCP Physician Assistant Medical; Visit Provider Surgery | DX: K42.0 Umbilical hernia with obstruction, without gangrene (principal); K40.90 Unilateral inguinal hernia, without obstruction or gangrene, not specified as recurrent | CPT/HCPCS: 49505; 49594 ==

== ENCOUNTER 2024-05-21 11:33 | Outpatient (AMB) | payer OTHER, SELFPAY ==
--- NOTE | 2024-05-21 11:42 | A.OFFVIS_ITS ---
Intake Visit Reasons: S/P LIH & umbilical hernia w/mesh Intake Note: Patient here s/p LIH and umbilical hernia w/mesh repair. Patient c/o: covered incision sites with gauze and tegaderm after noticing some oozing. Only took ibuprofen as got sick, vomiting, dizziness with Vicodin. Requesting something stronger than ibuprofen. SX: 05-10-2024. Food And Drug Inspector Required: No Accompanied by: Self / Same As Patient Allergies codeine Allergy (Unknown, Verified 05/21/24 11:42) NAUSEA clindamycin Allergy (Verified 05/21/24 11:42) Unknown doxycycline Allergy (Verified 05/21/24 11:42) Unknown erythromycin base Allergy (Verified 05/21/24 11:42) Rash vancomycin Allergy (Verified 05/21/24 11:42) Unknown HPI Comments Details: Patient presents status post umbilical and left inguinal hernia repair. Aside from incisional discomfort which is improving she is doing well. She is currently tolerating her diet. He is having regular bowel habits. She is increasing her activity level. [facility] Medical History (Updated 05/03/24 @ 09:39 by Kim Soto RN) Insulin pump in place Hx of viral pneumonia Palpitations COVID-19 vaccine series completed Dysphagia GERD (gastroesophageal reflux disease) LISSET (obstructive sleep apnea) Paroxysmal supraventricular tachycardia Vitamin D deficiency Allergic rhinitis Depression Anxiety Hypothyroidism Hyperlipidemia HTN (hypertension) Type II diabetes mellitus Surgical History (Updated 05/21/24 @ 12:02 by Jair Bray MD) H/O right knee surgery History of esophagogastroduodenoscopy (EGD) Hx of shoulder surgery Hx of elbow surgery History of carpal tunnel release Hx of unilateral salpingectomy Family History Mother Diabetes High cholesterol Social History Are you a primary tire care manager to a significant other at home: No Do you presently have visiting nurse or other home services: No Alcohol intake: never Patient Tobacco Use Status: Former Tobacco user Tobacco use type: Cigarette Physical Exam GI Other: Abdomen is soft. Incision of umbilicus clean dry and intact. Left groin incision clean dry and intact Assessment & Plan Assessment & Plan (1) Status post umbilical hernia repair, follow-up exam: Code(s): Z09 - Encounter for follow-up examination after completed treatment for conditions other than malignant neoplasm Category: Medical (2) Status post left inguinal hernia repair: Code(s): Z98.890 - Other specified postprocedural states; Z87.19 - Personal history of other diseases of the digestive system Category: Medical Plan Patient was been given local instructions including avoiding strenuous activities next few weeks time I will otherwise follow-up p.r.n.. All questions answered Coding Level of Care Code Global (53800) Diagnoses Status post umbilical hernia repair, follow-up exam Z09 Status post left inguinal hernia repair Z98.890; Z87.19
== END 2024-05-21 11:52 | disposition home or self-care (01) ==
PROVIDERS: PCP Physician Assistant Medical; Visit Provider Surgery
DX: Z09 Encounter for follow-up examination after completed treatment for conditions other than malignant neoplasm (principal); Z98.890 Other specified postprocedural states; Z87.19 Personal history of other diseases of the digestive system
CPT/HCPCS: 99024

== ENCOUNTER → 2024-05-21 11:33 | Outpatient (BNVA) | payer OTHER, SELFPAY | PROVIDERS: PCP Physician Assistant Medical; Visit Provider Surgery | DX: Z09 Encounter for follow-up examination after completed treatment for conditions other than malignant neoplasm (principal); Z87.19 Personal history of other diseases of the digestive system; Z98.890 Other specified postprocedural states | CPT/HCPCS: 99212 ==

== ENCOUNTER 2024-06-11 14:44 | Outpatient (AMB) | payer OTHER, SELFPAY ==
--- NOTE | 2024-06-11 14:45 | MHC.OFFVIS ---
Intake Visit Reasons: Belly Button red and pussy/infected? Intake Note: Patient scheduled today's appointment as urgent. Patient c/o: belly button area looks infected, red, inflamed, oozing yellowish discharge. Symptoms started 3-4 days ago. Hx: LIH and umbilical hernia repair: 05-10-2024. Towel Folder Required: No Accompanied by: Self / Same As Patient Allergies codeine Allergy (Unknown, Verified 06/11/24 14:52) NAUSEA clindamycin Allergy (Verified 06/11/24 14:52) Unknown doxycycline Allergy (Verified 06/11/24 14:52) Unknown erythromycin base Allergy (Verified 06/11/24 14:52) Rash vancomycin Allergy (Verified 06/11/24 14:52) Unknown HPI Comments Details: Patient presents for evaluation of her umbilical incision. The left side is some drainage. Exam demonstrates a stitch abscess which was uneventfully removed, bacitracin dressing applied. Patient tolerated procedure well. [facility] Medical History (Updated 05/03/24 @ 09:39 by Kim Soto RN) Insulin pump in place Hx of viral pneumonia Palpitations COVID-19 vaccine series completed Dysphagia GERD (gastroesophageal reflux disease) LISSET (obstructive sleep apnea) Paroxysmal supraventricular tachycardia Vitamin D deficiency Allergic rhinitis Depression Anxiety Hypothyroidism Hyperlipidemia HTN (hypertension) Type II diabetes mellitus Surgical History (Updated 06/12/24 @ 09:41 by Jair Bray MD) H/O right knee surgery History of esophagogastroduodenoscopy (EGD) Hx of shoulder surgery Hx of elbow surgery History of carpal tunnel release Hx of unilateral salpingectomy Family History Mother Diabetes High cholesterol Social History Are you a primary care director rn to a significant other at home: No Do you presently have visiting nurse or other home services: No Alcohol intake: never Patient Tobacco Use Status: Former Tobacco user Tobacco use type: Cigarette Assessment & Plan Assessment & Plan (1) Postoperative stitch abscess: Code(s): T81.41XA - Infection following a procedure, superficial incisional surgical site, initial encounter Category: Surgical Plan: Patient was been given local instructions including bacitracin each day for next few days with a Band-Aid and will otherwise follow-up p.r.n.. All questions answered. Coding Level of Care Code Global (57772) Diagnoses Postoperative stitch abscess T81.41XA
== END 2024-06-11 14:53 | disposition home or self-care (01) ==
PROVIDERS: PCP Physician Assistant Medical; Visit Provider Surgery
DX: T81.41XA Infection following a procedure, superficial incisional surgical site, initial encounter (principal)
CPT/HCPCS: 99024

== ENCOUNTER → 2024-06-11 14:44 | Outpatient (BNVA) | payer OTHER, SELFPAY | PROVIDERS: PCP Physician Assistant Medical; Visit Provider Surgery | DX: T81.41XA Infection following a procedure, superficial incisional surgical site, initial encounter (principal); X58.XXXA Exposure to other specified factors, initial encounter; Y93.9 Activity, unspecified; Y92.9 Unspecified place or not applicable; Y99.9 Unspecified external cause status | CPT/HCPCS: 99212 ==

== ENCOUNTER 2024-07-30 11:59 | Outpatient (AMB) | payer OTHER, SELFPAY ==
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
== END 2024-07-30 15:49 | disposition home or self-care (01) ==
LOC: HO.HGI 11:59
PROVIDERS: PCP Physician Assistant Medical; Visit Provider Internal Medicine Gastroenterology
DX: R13.14 Dysphagia, pharyngoesophageal phase (principal)
CPT/HCPCS: 98001

== ENCOUNTER → 2024-07-30 11:59 | Outpatient (BNVA) | payer OTHER, SELFPAY | PROVIDERS: PCP Physician Assistant Medical; Visit Provider Internal Medicine Gastroenterology ==

== ENCOUNTER 2024-10-31 08:58 | Day surgery (SDC) | payer OTHER, SELFPAY ==
[2024-10-26 12:07] VITALS: BMI 27.5
[2024-10-26 12:17] VITALS: BMI 27.5
--- OUTSIDE RECORDS SUMMARY | 2024-10-31 09:33 | XMS_ITS | Referral Summary ---
Author Organization [facility] Address [address] [id number] Care Team Providers Care Strategic Alliances Manager Name Role Phone Nhung Garcia Primary Care Provider [phone] Allergies Active Allergy Reactions Criticality Noted Date Comments Clindamycin Unknown 11/02/2018 maculopapular rash, improved within several days of discontinuing the agent Codeine Dizziness,Nausea,Vom it ing 09/06/2017 Doxycycline Rash Medium 09/12/2017 Erythromycin Unknown 02/20/2024 Vancomycin Unknown 11/02/2018 Active Problems Problem Noted Date Diagnosed Date Neck pain 03/04/2014 Bursitis of shoulder, right 01/15/2014 Osteoarthritis of acromioclavicular joint 2013 Type 2 diabetes mellitus 01/09/2014 Hypercholesterolemia 01/09/2014 Hypertension 01/09/2014 Anxiety 01/09/2014 Depression 01/09/2014 Hypothyroidism 01/09/2014 Tendinitis of right rotator cuff 01/09/2014 Social History Tobacco Use Types Packs/Day Years Used Date Smoking Tobacco: Former Smokeless Tobacco: Never Tobacco Cessation:Counseling Given: Not Answered Comments:: Alcohol Use Standard Drinks/Week Comments Yes 0 (1 standard drink = 0.6 oz pur e alcohol) Comments Unknown Sex and Gender Information Value Date Recorded Sex Assigned at Female 02/20/2024 1:35 PM EDT Legal Sex Female 12:10 AM EDT Gender Identity Not on file Sexual Orientation Not on file Last Filed Vital Signs Vital Sign Reading Time Taken Comments Blood Pressure 139/75 02/20/2024 3:00 PM EDT Pulse 65 02/20/2024 3:00 PM EDT Temperature 36.5 ??C (97.7 ??F) 02/20/2024 1:05 PM ED T Respiratory Rate 17 02/20/2024 3:00 PM EDT Oxygen Saturation 95% 02/20/2024 3:00 PM EDT Inhaled Oxygen Concentration - - Weight 71.7 kg (158 lb) 02/20/2024 1:09 PM EDT Height 157.5 cm (5' 2 ) 02/20/2024 1:09 PM EDT Body Mass Index 28.9 02/20/2024 1:09 PM EDT Plan of Treatment Not on file Procedures * Due to [employer] law, this organization might not be sharing negative HIV tests. Procedure Name Priority Date/Time Associated Diagnosis Comments COMPREHENSIVE METABOLIC PANEL STAT 02/20/2024 1:08 PM EDT from Last 3 Months or Most Recently Relevant to Health Maintenance Results * Due to [place] [employer] law, this organization might not be sharing negative HIV tests. * (ABNORMAL) Comprehensive Metabolic Panel (02/20/2024 1:08 PM EDT) NA 140 136 - 145 mmol/L 02/20/2024 1:[address] [facility] K 3.7 3.5 - 5.1 mmol/L 02/20/2024 1:[address] [facility] Cl 102 98 - 109 mmol/L 02/20/2024 1:[address] [facility] CO2 26 23 - 32 mmol/L 02/20/2024 1:[address] [facility] Anion Gap 16 >=0 02/20/2024 1:[address] [facility] Glucose 115(H) 60 - 99 mg/dL 02/20/2024 1:[address] [facility] Creatinine 0.77 0.50 - 1.12 mg/dL 02/20/2024 1:[address] [facility] Calcium 9.0 8.4 - 10.4 mg/dL 02/20/2024 1:[address] [facility] Total Protein 6.0(L) 6.6 - 8.7 g/dL 02/20/2024 1:[address] [facility] Albumin 3.8 3.5 - 5.0 g/dL 02/20/2024 1:[address] [facility] Bilirubin, Total 0.2 0.2 - 1.0 mg/dL 02/20/2024 1:[address] [facility] Alkaline Phosphatase 66 40 - 129 U/L 02/20/2024 1:[address] [facility] AST 15 0 - 33 U/L 02/20/2024 1:[address] [facility] ALT 22 <=33 U/L 02/20/2024 1:[address] [facility] BUN 12 8 - 23 mg/dL 02/20/2024 1:[address] [facility] eGFR 88 >=60 mL/min/1. 73m2 02/20/2024 1:[address] [facility] Comment:The estimated glomer ular filtration rate (eGFR) is calculated using a new formula developed by the NKF-ASN task force to eliminate race-based correction factors. The new formula uses serum/plasma creatinine, age, and gender to determine eGFR. A value below 60mls/min might indicate kidney disease and will be flagged. For additional information, see Calle et al, Am J Kidney Dis. 2021;79(2):268- 288, A Unifying Approach for GFR estimation: Recommendations of the NKF-ASN Task Force on Reassessing the Inclusion of Race in Diagnosing Kidney Disease . Globulin, Total 2.2 2.1 - 4.2 g/dL 02/20/2024 1:[address] [facility] A/G Ratio 1.7 1.5 - 3.0 02/20/2024 1:37 PM [facility] Blood Structure of peripheral vein / Unknown Venipuncture / Unknown 02/20/2024 1:08 PM EDT 02/20/2024 1:14 PM EDT us Momo Badillo MD LAB BLOOD ORDERABLES Final Result [facility] [address] [place] [address], [place] [phone] from Last 3 Months or Most Recently Relevant to Health Maintenance Insurance [id number] MEDICAID Care Teams Strategic Alliances Manager Relationship Specialty Start Date End Date Nhung Garcia [facility] [place] [address] PCP - General Physician Timber Framer Helper 02/20/24
--- OUTSIDE RECORDS SUMMARY | 2024-10-31 09:33 | XMS_ITS | Clinical Summary ---
Author Organization [facility] Address [address] [place] [address] Care Team Providers Care Picker Feeder Name Role Phone Nhung Garcia Primary Care Provider [phone] Allergies Active Allergy Reactions Criticality Noted Date [...] 01/09/2014 Tendinitis of right rotator cuff 01/09/2014 Family History Medical History Relation Name Comments Other Brother Family History of diabetes mellitus Other Father Family History of essential hypertension Other Mother Family History of essential hypertension Other Sister Family History of cancer Relation Name Status Comments Brother Father Mother Sister Social History Tobacco Use Types Packs/Day Years [...] 02/20/2024 1:09 PM EDT Plan of Treatment Health Maintenance Due Date Last Done Comments Cervical Cancer Screening 1965 Cologuard 1965 Colon Cancer Screening 1965 Colonoscopy 1965 FOBT / Fit Test 1965 HIV Screening 1965 HPV and Pap Smear 1965 Hemoglobin A1C 1963 Hepatitis C Screening 1965 Pap Smear 1965 Sigmoidoscopy 1963 Ophthalmology Exam 1973 Urine Microalbumin [address] Lung Cancer Screening (Baseline) 2013 Zoster Vaccines (2 of 2) 12/22/2017 10/27/2017 DTaP,Tdap,and Td Vaccines (1 - Tdap) 03/01/2018 02/28/2018 RSV Vaccine (60+ years old and patients) (1 - Risk 60-74 years 1-dose series) 2023 COVID-19 Vaccine ( season) 2024 06/11/2021, 11/09/2020, 10/19/2020 Alcohol/Substance Use Screening 07/11/2024 Depression Screening and Follow-Up 07/11/2024 Social Drivers of Health Annual Screening 07/11/2024 Basic Metabolic Panel 02/19/2025 02/20/2024, 021 Influenza Vaccine (Season Ended) 2025 03/31/2021, 03/31/2020, 04/27/2019, Additional history exists Pneumococcal Vaccine: 50+ Years (3 of 3 - PCV20 or PCV21) 05/12/2026 05/12/2021, 10/27/2017 Hepatitis B Vaccines Aged Out No long er eligible based on patient's age to complete this topic Procedures * Due to [place] [employer] law, this organization might not be sharing negative HIV tests. Procedure Name Priority Date/Time Associated Diagnosis Comments COMPREHENSIVE METABOLIC PANEL STAT 02/20/2024 1:08 PM EDT from Last 3 Months or Most Recently Relevant to Health Maintenance Results * Due to [place] [employer] law, this organization might not be sharing negative HIV tests. * (ABNORMAL) Comprehensive Metabolic Panel (02/20/2024 1:08 PM EDT) NA 140 136 - 145 mmol/L 02/20/2024 1:[address] [facility] K 3.7 3.5 - 5.1 mmol/L 02/20/2024 1:[address] [facility] Cl 102 98 - 109 mmol/L 02/20/2024 1:[address] [facility] CO2 26 23 - 32 mmol/L 02/20/2024 1:[address] [facility] Anion Gap 16 >=0 02/20/2024 1:[address] [facility] Glucose 115(H) 60 - 99 mg/dL 02/20/2024 1:[address] [facility] Creatinine 0.77 0.50 - 1.12 mg/dL 02/20/2024 1:[address] [facility] Calcium 9.0 8.4 - 10.4 mg/dL 02/20/2024 1:[address] [facility] Total Protein 6.0(L) 6.6 - 8.7 g/dL 02/20/2024 1:[address] [facility] Albumin 3.8 3.5 - 5.0 g/dL 02/20/2024 1:[address] [facility] Bilirubin, Total 0.2 0.2 - 1.0 mg/dL 02/20/2024 1:[address] [facility] Alkaline Phosphatase 66 40 - 129 U/L 02/20/2024 1:[address] [facility] AST 15 0 - 33 U/L 02/20/2024 1:[address] [facility] ALT 22 <=33 U/L 02/20/2024 1:[address] [facility] BUN 12 8 - 23 mg/dL 02/20/2024 1:[address] [facility] eGFR 88 >=60 mL/min/1. 73m2 02/20/2024 1:[address] [facility] Comment:The estimated glomer ular filtration rate [...] 2.1 - 4.2 g/dL 02/20/2024 1:[address] [facility] A/G Ratio 1.7 1.5 - 3.0 02/20/2024 1:[address] [facility] Blood Structure of peripheral vein / Unknown Venipuncture / Unknown 02/20/2024 1:08 PM EDT 02/20/2024 1:14 PM EDT us Momo Badillo MD LAB BLOOD ORDERABLES Final Result [facility] [address] [place] [address], from Last 3 Months or Most Recently Relevant to Health Maintenance Insurance [employer] [facility] MEDICAID Care Teams Picker Feeder Relationship Specialty Start Date End Date Nhung Garcia [address] [place] [address] PCP - General Physician Hand Cloth Folder 02/20/24
--- OUTSIDE RECORDS SUMMARY | 2024-10-31 09:33 | XMS_ITS ---
Author Organization [facility] Care Team Providers Care Smasher Name Role Phone Adama Estrada Unavailable Unavailable Allergies and adverse reactions Code CodeSystem Substance Reaction Severity StartDate Concern Status 3640 RXNORM Doxycycline Moderate 09/12/2017 active 2670 RXNORM Codeine Unknown 09/06/2017 active Care Team Name Role Address Phone Organization Dates Adama Estrada PCP [address] [place], [address], [place] (Office): [facility] [place] 09/06/2017 - 09/15/2017 Immunizations Immunization Status Vaccine Details Vaccine Code CodeSystem Aashish e Notes Influenza completed Influenza, high-dose, split virus, quadrivalent, injectable, preservative free 197 CVX created date: 09/08/2017 administered date: 04/07/2017 Pneumovax Dose 1 completed cre ated date: 09/08/2017 administered date: 06/26/2014 Mental Status Section Date Assessment Total Score Description 09/15/2017 BIMS 15 cognitively int act CAM 0 No delirium ind icated PHQ-9 00 09/13/2017 BIMS 15 cognitively int act CAM 0 No delirium ind icated PHQ-9 00 Problems Problem # Description Date of onset Resolved Date Code CodeSystem Concern Status 1 ABSCESS OF LUNG WITH PNEUMONIA 09/09/[address] active 2 ACUTE KIDNEY FAILURE WITH TUBULAR NECROSIS 09/06/[address] active 3 ACUTE KIDNEY FAILURE, UNSPECIFIED 09/06/19 18 09/08/[address] completed 4 ANEMIA, UNSPECIFIED 09/06/[address] active 5 METHICILLIN RESISTANT STAPHYLOCOCCUS AUREUS INFECTION THE CAUSE OF DISEASES CLASSIFIED ELSEWHERE 09/06/[address] active 6 TYPE 2 DIABETES MELLITUS WITHOUT COMPLICATIONS 09/06/[address] active Reason for Referral No Reasons for Referral Entered Social History Social History Observation Description Start Date End Date Code Code System Current Smoking Status Tobacco smoking consumption unknown 248353711 SNOMED CT Sex Assigned At Female 1965 25924-0 [facility] Vital Signs Code Code System Vitals Name Values and Units Timing Information 67128-8 [facility] Weight Dksvh=355.0 Units=Lbs 12/2017 8302-2 [facility] Height Value=62.0 Units=Inches 09/13/2017 9279-1 [facility] Respiratory Rate Value=18.0 Units=/m in 09/13/2017 8462-4 [facility] Blood Pressure-Diastolic Value=72 Un its=mmHg 09/13/2017 8480-6 [facility] Blood Pressure-Systolic Mdgwj=691 Un its=mmHg 09/13/2017 8310-5 [facility] Body Temperature Value=98.2 Units=?? F 09/13/2017 8867-4 [facility] Heart rate Value=88.0 Units=/min 12/2017 97928-8 [facility] O2 % BldC Oximetry Value=97.0 Units= % 09/13/2017 52622-5 [facility] Pain Level Value=0.0 09/13/2017
--- OUTSIDE RECORDS SUMMARY | 2024-10-31 09:33 | XMS_ITS | Encounter Summary ---
Author Organization [facility] Address [address] [place] [address] Phone Care Team Providers Care Snowmaker Name Role Phone Dominic Mcgraw MD Unavailable [phone] Sonny Bob MD Unavailable [phone] Gloria Sehriff MD Primary Care Pro vider Reyna Bonilla NP Primary Care Provi ha Reyna Bonilla NP Primary Care Provi ha Nhung Garcia Primary Care Provider [phone] Encounter Details Date Type Department Care Team (Late st Contact Info) Description 02/18/2021 Ancillary Orders [facility],Outside Imaging [address] [place] [address] System, Provider Not In, [place] [address] Social History Tobacco Use Types Packs/Day Years Used Date Smoking Tobacco: Former Cigarettes Q uit: 11/02/1987 Smokeless Tobacco: Never Alcohol Use Standard Drinks/Week Comments Yes 0 (1 standard drink = 0.6 oz pur e alcohol) Sex and Gender Information Value Date Recorded Sex Assigned at Not on file Gender Identity Not on file Sexual Orientation Not on file documented as of this encounter Plan of Treatment Upcoming Encounters Date Type Department Care Team (Late Contact Info) Description 10/24/2025 10:40 AM EDT Office Visit [facility] [address] [place] [address] [address]rd Floor, [address] [place] [address] Avelino Vizcarra MD [address] [facility], [address] [place] [address] [email or web address] documented as of this encounter Results * XR Chest Outside (No Interpretation) (10/11/2019 12:00 AM EDT) Narrative SYSTEMGENERATED, DOCUMENTATION - 02/18/2021 1:29 PM EDT This study is for PACS storage only and not for interpretation. Provider Not In System PhD IMG OUTSIDE I MAGING W/OUT INTERPRETATION documented in this encounter Visit Diagnoses Not on filedocumented in this encounter Care Teams Snowmaker Relationship Specialty Start Date End Date Gloria Sheriff MD [address] [place] [address] PCP - General Internal Medicine 11/28/20 04/02/21 Reyna Bonilla NP [address] [place] [address] PCP - General Family Medicine 04/03/21 12/16/21 Reyna Bonilla NP [address] [place] [address] PCP - General Family Medicine 12/17/21 09/20/23 Nhung Garcia PA [address] [place] [address] PCP - General Physician Machinist Brake 09/21/23 Dominic Mcgraw MD [email or web address] Historical LMR Provider 10/19/17 Sonny Bob MD [address] [place] [address] Historical LMR Provider 04/28/17 2 documented as of this encounter Additional Source Comments The information contained in this document represents components of the legal health record. It is not the complete legal health record.[facility]
--- OUTSIDE RECORDS SUMMARY | 2024-10-31 09:33 | XMS_ITS | Clinical Summary ---
Author Organization [facility] Address [address] [place] [address] Care Team Providers Care Early Childhood Assistant Name Role Phone Unavailable Primary Care Provider Unavailabl e Social History Tobacco Use Types Packs/Day Years Used Date Smoking Tobacco: Never Assessed Comments Unknown Sex and Gender Information Value Date Recorded Sex Assigned at Not on file Legal Sex Female 11:52 AM EDT Gender Identity Not on file Sexual Orientation Not on file Plan of Treatment Health Maintenance Due Date Last Done Comments Hepatitis C Virus Screening 1963 HIV Screening 1976 DTaP/Tdap/Td Vaccines (1 - Tdap) 1982 Pneumococcal Vaccines 50+ (1 of 1 - PCV) 2013 Zoster (Shingles) Vaccine (1 of 2) 2013 COVID-19 Vaccine ( - 2023-2 5 season) 2024 RSV Vaccine 60 years and old er and Patients (1 - 1-dose 75+ series) 2038 Hepatitis B Vaccines Aged Out No long er eligible based on patient's age to complete this topic
--- OUTSIDE RECORDS SUMMARY | 2024-10-31 09:33 | XMS_ITS | Encounter Summary ---
Author Organization [facility] Address [address] [place] [address] Phone Care Team Providers Care Evening Or Night Nurse Supervisor Name Role Phone Dominic Mcgraw MD Unavailable [phone] Sonny Bob MD Unavailable [phone] Gloria Sheriff MD Primary Care Pro vider Reyna Bonilla NP Primary Care Provi ha Reyna Bonilla NP Primary Care Provi ha Nhung Garcia Primary Care Provider [phone] Encounter Details Date Type Department Care Team (Late st Contact Info) Description 03/18/2021 Ancillary Orders [facility],Outside Imaging [address] [place] [address] System, Provider Not In, [place] [address] Social History Tobacco Use Types Packs/Day Years [...] Description 10/24/2025 10:40 AM EDT Office Visit [facility] [address] [place] [address] [address]rd Floor, [address] [place] [address] Avelino Vizcarra MD [address] [facility], [address] [place] [address] [email or web address] documented as of this encounter Results * CT Chest Outside (No Interpretation) (01/14/2021 12:00 AM EDT) Narrative SYSTEMGENERATED, DOCUMENTATION - 03/18/2021 9:29 AM EDT This study is for PACS storage only and not for interpretation. Provider Not In System PhD IMG OUTSIDE I MAGING W/OUT INTERPRETATION documented in this encounter Visit Diagnoses Not on filedocumented in this encounter Care Teams Evening Or Night Nurse Supervisor Relationship Specialty Start Date End Date Gloria Sheriff MD [address] [place] [address] PCP - General Internal Medicine 11/28/20 04/02/21 Reyna Bonilla NP [address] [place] [address] PCP - General Family Medicine 04/03/21 12/16/21 Reyna Bonilla NP [address] [place] [address] PCP - General Family Medicine 12/17/21 09/20/23 Nhung Garcia PA [address] [place] [address] PCP - General Physician Case Maker 09/21/23 Dominic Mcgraw MD [email or web address] Historical LMR Provider 04/28/17 Sonny Bob MD [address] [place] [address] Historical LMR Provider 04/28/17 2 documented as of this encounter Additional Source Comments The information contained in this document represents components of the legal health record. It is not the complete legal health record.[facility]
--- OUTSIDE RECORDS SUMMARY | 2024-10-31 09:33 | XMS_ITS | Clinical Summary ---
Author Organization [facility] Address [address] [place] [id number] Phone Care Team Providers Care Food Service Coordinator Name Role Phone Dominic Mcgraw MD Unavailable [phone] Nhung Garcia Primary Care Provider [phone] Allergies Active Allergy Reactions Criticality Noted Date Comments Clindamycin Hcl 11/02/2018 Codeine 11/01/2017 Doxycycline Calcium 11/02/2018 Vancomycin 11/02/2018 Medications Medication Sig Dispensed Refills Start Date End Date Status ibuprofen (ADVIL,MOTRIN) 800 MG tablet Take 1 tablet by mouth as needed. Active CETIRIZINE HCL (ZYRTEC ORAL) Take 10 mg by mouth daily. Active cyclobenzaprine (FLEXERIL) 10 MG tablet Take 1 tablet by mouth daily. Active atorvastatin (LIPITOR) 40 MG tablet Take 1 tablet by mouth daily. Active levothyroxine (SYNTHROID, LEVOTHROID) 50 MCG tablet Take 1 tablet by mouth every morning. on an empty stomach Active cholecalciferol (VITAMIN D3) 2,000 unit capsule Take 2,000 Units by mouth daily. Orally Active hyoscyamine (ANASPAZ,LEVSIN) 0.125 mg ODT Take 125 mcg by mouth every 4 (four) hours as needed. Active montelukast (SINGULAIR) 10 mg tablet Take 10 mg by mouth nightly at bedtime. Active albuterol 90 mcg/actuation inhaler Inhale 2 puffs into the lungs every 6 (six) hours as needed for wheezing. Active insulin lispro U-200 (HUMALOG KWIKPEN) 200 unit/mL (3 mL) InPn subcutaneous pen Inject under the skin. Sliding scale Active traZODone (DESYREL) 150 MG tablet Take 75 mg by mouth nightly at bedtime. Active lidocaine (LIDODERM) 5 % 04/11/2021 Active enalapril (VASOTEC) 5 MG tablet Take 5 mg by mouth daily. Active dilTIAZem (CARDIZEM CD) 180 MG 24 hr capsuleIndications :Palpitations TAKE ONE CAPSULE BY MOUTH TWICE A DAY 180 capsule 3 02/21/2023 Active meclizine (ANTIVERT) 12.5 mg tablet Take 12.5 mg by mouth as needed. 08/26/2023 Active methylPREDNISolone (MEDROL DOSEPACK) 4 mg tablet as needed (respiratory infection). 09/16/2023 Active sertraline (ZOLOFT) 100 MG tablet Take 100 mg by mouth nightly at bedtime. Total dose 125mg, takes 100mg and 25mg 07/28/2023 Active MOUNJARO 5 mg/0.5 mL PnIj Inject 5 mg under the skin once a week. 08/31/2023 Active SPIRIVA RESPIMAT 2.5 mcg/actuation mist for inhalationIndicati ons:Shortness of breath,Moderate persistent asthma without complication TAKE 2 PUFFS INTO THE LUNGS DAILY 4 g 5 07/23/2024 Active SYMBICORT 80-4.5 mcg/actuation inhalerIndications :Moderate persistent asthma without complication INHALE 2 PUFFS INTO LUNGS TWO TIMES A DAY 10.2 g 5 09/17/2024 Active budesonide (RHINOCORT AQUA) 32 mcg/actuation nasal spray 10/16/2024 Active sertraline (ZOLOFT) 50 MG tablet 09/22/2024 Active esomeprazole (NEXIUM) 20 MG capsule Take 20 mg by mouth daily before breakfast. Active pantoprazole (PROTONIX) 40 MG tabletIndications: Gastroesophageal reflux disease, unspecified whether esophagitis present Take 1 tablet (40 mg total) by mouth 2 (two) times a day. 180 tablet 3 09/08/2022 10/24/2024 Discontinue d(No longer taking) sertraline (ZOLOFT) 25 MG tablet Take 25 mg by mouth daily. Total dose 125mg, takes 100mg and 25mg 08/31/2023 10/24/2024 Discontinue d(No longer taking) Active Problems Problem Noted Date Diagnosed Date Dizziness and giddiness 10/24/2024 Assessment & Plan (10/24/2024 11:05 AM EDT): Having episodes of dizziness multiple times a week usually precipitated by rapid head movement or bright lights. Responds very well to meclizine. She may benefit from vestibular rehab. Recommend she follow-up with PCP regarding this. Moderate persistent asthma without complication 07/08/2022 Shortness of breath 02/23/2021 Assessment & Plan (10/24/2024 11:01 AM EDT): She is telling me that the symptoms are significant improved after starting Mounjaro and dropping 60 pounds. Not really endorsing any concerns regarding this currently. She is following up with GI as previously recommended, she has an upper endoscopy scheduled for next week. Assessment & Plan (12/22/2023 11:47 AM EDT): Exertional shortness of breath, likely multifactorial. She had a severe MRSA pneumonia complicated by bilateral empyema requiring chest tube placement in 2018 (and since this time, she notes a constant bandlike chest tightness/pressure). However, no evidence of lung scarring or other parenchymal changes on CT chest from 01/2021. More recently, she had pneumonia in 10/2019, presumed viral, and continues to have significant shortness of breath and chest tightness. As such, a post-viral syndrome is possible. She is a former cigarette smoker and active smoker of marijuana, so COPD was considered a possibility. PFTs from 03/2021 without obstructive physiology, however, elevated FRC and RV is suggestive of air trapping without hyperinflation, suggestive of asthma/chronic bronchitis. Obesity and deconditioning are likely significant contributing factors (PFTs notable for markedly impaired ERV which likely represents the imprint of body habitus). Repeat spirometry in 08/2023 was normal. She also previously described recurrent episodes of aspiration (multiple times per week) in the setting of achalasia/GERD which result in coughing and shortness of breath. As such, she could be having recurrent episodes of aspiration pneumonitis which could be contributing to episodic worsening of her shortness of breath. Her shortness of breath improved with adherence to her maintenance inhaler regimen and in the context of weight loss. Though, she continued to experience some shortness of breath and ongoing chest tightness/pressure (though, this has been present since having empyema in 2018). Presently, her asthma appears to remain well-controlled. She has had extensive prior cardiopulmonary testing which has not explained her ongoing shortness of breath or constant bandlike chest pain. I agree with cardiology that her multiple, chronic GI issues require further evaluation to determine whether they are contributing to her ongoing symptoms which do not appear to be cardiopulmonary in etiology. Plan: -Continue Symbicort (ICS/LABA) 80-4.5 2 puffs twice daily (previously, patient did not benefit from high-dose Symbicort and experienced possible side effects) -Albuterol as needed -Encourage exercise, weight loss -Ongoing GI evaluation/treatment, as below -Encourage smoking cessation, as below Assessment & Plan (09/21/2023 11:11 AM EDT): Exertional shortness of breath, likely multifactorial. She had a severe MRSA pneumonia complicated by bilateral empyema requiring chest tube placement in 2018 (and since this time, she notes a constant bandlike chest tightness/pressure). However, no evidence of lung scarring or other parenchymal changes on CT chest from 01/2021. More recently, she had pneumonia in 10/2019, presumed viral, and continues to have significant shortness of breath and chest tightness. As such, a post-viral syndrome is possible. She is a former cigarette smoker and active smoker of marijuana, so COPD was considered a possibility. PFTs from 03/2021 without obstructive physiology, however, elevated FRC and RV is suggestive of air trapping without hyperinflation. This is asthma/chronic bronchitis. Obesity and deconditioning are likely significant contributing factors (PFTs notable for markedly impaired ERV which likely represents the imprint of body habitus). She also previously described recurrent episodes of aspiration (multiple times per week) in the setting of achalasia/GERD which result in coughing and shortness of breath. As such, she could be having recurrent episodes of aspiration pneumonitis which could be contributing to episodic worsening of her shortness of breath. Since last visit, her shortness of breath has improved with the adherence to her maintenance inhaler regimen and in the context of weight loss. Though, she continues to experience some shortness of breath and ongoing chest tightness/pressure (though, this has been present since having empyema in 2018). -Escalate Symbicort (ICS/LABA) 80-4.5 2 puffs twice daily to 160-4.5 2 puffs twice daily -Per patient, she had PFTs performed at [facility] recently--we will obtain the PFT report -Albuterol as needed -Encourage exercise, weight loss -Ongoing GI evaluation/treatment, as below -Encourage smoking cessation, as below Assessment & Plan (07/09/2022 4:31 PM EST): Exertional shortness of breath, likely multifactorial. ??She had a severe MRSA pneumonia complicated by bilateral empyema requiring chest tube placement in 2018. ??However, no evidence of lung scarring or other parenchymal changes on CT chest from 01/2021. ??Most recently, she??had pneumonia in 10/2019, presumed viral, and continues to have significant shortness of breath and chest tightness. ??As such, a post- viral syndrome is possible. ??She is a former cigarette smoker and active smoker of marijuana, so COPD was considered a possibility. ??PFTs from 03/2021 without obstructive physiology, however, elevated FRC and RV is suggestive of air trapping without hyperinflation. This could be compatible with mild COPD or asthma/chronic bronchitis. ??Obesity and deconditioning are likely significant contributing factors (PFTs notable for markedly impaired ERV which likely represents the imprint of body habitus). ??She continues to have some exertional dyspnea. ??She also describes recurrent episodes of aspiration (multiple times per week) in the setting of achalasia/GERD which result in coughing and shortness of breath. ??As such, she could be having recurrent episodes of aspiration pneumonitis which could be contributing to episodic worsening of her shortness of breath. -Continue Symbicort 80-4 2 puffs twice daily + Spiriva (LAMA) given equivocal findings suggestive of some degree of obstructive lung disease and historic improvement with bronchodilators/ICS -Albuterol as needed -Encourage weight loss, exercise -Ongoing GI evaluation/treatment, as below -Encourage smoking cessation, as below Assessment & Plan (05/05/2021 11:49 AM EDT): Exertional shortness of breath, likely multifactorial. She had a severe MRSA pneumonia complicated by bilateral empyema requiring chest tube placement in 2018. However, no evidence of lung scarring or other parenchymal changes on CT chest from 01/14/2021. Most recently, she had pneumonia in 10/2019, presumed viral, and continues to have significant shortness of breath and chest tightness. As such, a post- viral syndrome is possible. She is a former cigarette smoker and active smoker of marijuana, so COPD was considered a possibility. PFTs from 03/2021 without obstructive physiology, however, elevated FRC and RV is suggestive of air trapping without hyperinflation. Obesity and deconditioning are likely significant contributing factors (PFTs notable for markedly impaired ERV which likely represents the imprint of body habitus). She continues to have some exertional dyspnea. She also describes recurrent episodes of aspiration (multiple times per week) which result in coughing and shortness of breath. As such, she could be having recurrent episodes of aspiration pneumonitis which could be contributing to episodic worsening of her shortness of breath. -Trial of Spiriva (LAMA) given equivocal findings suggestive of some degree of obstructive ling disease and historic improvement with albuterol -Albuterol as needed -Check CBC with differential, CMP, TSH (previously ordered, patient advised to get these tests done today) -Encourage weight loss, exercise -Ongoing GI evaluation/treatment, as below Assessment & Plan (02/23/2021 12:44 PM EDT): Exertional shortness of breath, likely multifactorial. She had a severe MRSA pneumonia complicated by empyema requiring chest tubes, per patient report, in 2018. She could have some residual lung scarring as a result. Most recently, she had pneumonia in 10/2019, presumed viral, and continues to have significant shortness of breath and chest tightness. As such, a post-viral syndrome is possible. She is a former cigarette smoker and active smoker of marijuana, so COPD is a possibility. Obesity and deconditioning are likely contributing factors. -Obtain PFTs + 6MWT -Check CBC with differential, CMP, TSH -Albuterol as needed -Encourage weight loss, exercise History of pneumonia 02/23/2021 Assessment & Plan (12/21/2023 8:53 PM EDT): Had pneumonia in early 2018 (severe MRSA pneumonia complicated by bilateral empyema requiring chest tube placement, prolonged hospitalization at [facility]) and in 10/2019 (thought to be viral in etiology). It is possible that aspiration could have been a precipitating factor in these episodes of pneumonia, in light of severe GERD in the setting of a hiatal hernia and achalasia. CT chest from 01/14/2021 was reassuring and essentially normal (no scarring or other lung parenchymal changes). Assessment & Plan (09/20/2023 4:30 PM EDT): Had pneumonia in early 2018 (severe MRSA pneumonia complicated by bilateral empyema requiring chest tube placement, prolonged hospitalization at [facility]) and in 10/2019 (thought to be viral in etiology). It is possible that aspiration could have been a precipitating factor in these episodes of pneumonia, in light of severe GERD in the setting of a hiatal hernia and achalasia. CT chest from 01/14/2021 was reassuring and essentially normal (no scarring or other lung parenchymal changes). Assessment & Plan (07/09/2022 4:34 PM EST): Had pneumonia in early 2018 (severe MRSA pneumonia complicated by bilateral empyema requiring chest tube placement, prolonged hospitalization at [facility]) and in 10/2019??(thought to be viral in etiology). ??It is possible that aspiration could have been a precipitating factor in these episodes of pneumonia, in light of severe GERD in the setting of a hiatal hernia and achalasia. ??CT chest from 01/14/2021 was reassuring and essentially normal (no scarring or other lung parenchymal changes). Assessment & Plan (05/05/2021 11:49 AM EDT): Had pneumonia in early 2018 (severe MRSA pneumonia complicated by bilateral empyema requiring chest tube placement, prolonged hospitalization at [facility]) and in 10/2019 (thought to be viral in etiology). It is possible that aspiration could have been a precipitating factor in these episodes of pneumonia, in light of severe GERD in the setting of a hiatal hernia and achalasia. CT chest from 01/14/2021 was reassuring and essentially normal (no scarring or other lung parenchymal changes). Assessment & Plan (02/23/2021 12:45 PM EDT): Had pneumonia in 2018 (severe MRSA pneumonia complicated by empyema requiring chest tubes, prolonged hospitalization at [facility]) and in 10/2019 (thought to be viral in etiology). It is possible that aspiration could have been a precipitating factor in these episodes of pneumonia, in light of severe GERD in the setting of a hiatal hernia. Chest x-ray from 10/11/2019 performed at outside hospital notable for bilateral infiltrates, most prominent at the lung bases. Will obtain CT chest to evaluate for resolution and assess for scarring, other parenchymal changes. -Obtain CT chest -Obtain records from [facility] (CT chest images, summary of hospitalization in 2018) -Obtain records of recent swallow study performed at [facility] Marijuana smoker 02/23/2021 Assessment & Plan (12/21/2023 8:53 PM EDT): Smokes marijuana nightly. This helps with her significant anxiety and helps her sleep. Smoking marijuana could certainly be contributing to her respiratory symptoms. Discussed this with patient and advised her to refrain from smoking any substance. She was encouraged to work with her PCP to find alternative means of managing her anxiety. She was also encouraged to try moving from combusting marijuana to consuming it in an edible form, however, she was concerned that this would be more expensive. Assessment & Plan (09/20/2023 4:30 PM EDT): Smokes marijuana nightly. This helps with her significant anxiety and helps her sleep. Smoking marijuana could certainly be contributing to her respiratory symptoms. Discussed this with patient and advised her to refrain from smoking any substance. She was encouraged to work with her PCP to find alternative means of managing her anxiety. She was also encouraged to try moving from combusting marijuana to consuming it in an edible form, however, she was concerned that this would be more expensive. Assessment & Plan (07/09/2022 4:35 PM EST): Smokes marijuana nightly. ??This helps with her significant anxiety and helps her sleep. ??Smoking marijuana could certainly be contributing to her respiratory symptoms. ??Discussed this with patient and advised her to refrain from smoking any substance. ??She was encouraged to work with her PCP to find alternative means of managing her anxiety. She was also encouraged to try moving from combusting marijuana to consuming it in an edible form, however, she was concerned that this would be more expensive. Assessment & Plan (05/05/2021 11:50 AM EDT): Smokes marijuana nightly. This helps with her significant anxiety and helps her sleep. She is also on trazodone which has been helpful for sleep and she feels she might be able to reduce her dependence on marijuana. Smoking marijuana could certainly be contributing to her respiratory symptoms. Discussed this with patient and advised her to refrain from smoking any substance. She was previously encouraged to work with her PCP to find alternative means of managing her anxiety. Assessment & Plan (02/23/2021 12:46 PM EDT): Smokes marijuana nightly. This helps with her significant anxiety. Smoking marijuana could certainly be contributing to her respiratory symptoms. Discussed this with patient and advised her to refrain from smoking any substance. She was encouraged to work with her PCP to find alternative means of managing her anxiety. Gastroesophageal reflux disease 02/23/2021 Assessment & Plan (12/22/2023 11:46 AM EDT): Historically with significant reflux symptoms. She was previously followed by Dr. Llanes at [facility]. She had an abnormal barium swallow with lesion anterior aspect proximal cervical esophagus and prominent cricopharyngeal achalasia, with hiatal hernia and reflux . EGD from 12/31/2020 showing gastritis and hiatal hernia; LES and UES were both dilated with a balloon. Plan at the time was for aggressive acid reflux control with twice daily PPI. Future considerations were for esophageal manometry, pH/impedance study, and possible hiatal hernia repair. She previously reported continued episodes of suspected aspiration. She was on a PPI twice daily. It is unclear whether her symptoms are due to achalasia requiring endoscopic or surgical intervention versus refractory GERD (in the context of a moderate size hiatal hernia) or a combination of the two. I previously recommended ongoing evaluation and management of these issues with gastroenterology. She was previously followed at [facility] and is in the process of transitioning her care to [facility]. Assessment & Plan (09/21/2023 11:10 AM EDT): Historically with significant reflux symptoms. She was previously followed by Dr. Llanes at [facility]. She had an abnormal barium swallow with lesion anterior aspect proximal cervical esophagus and prominent cricopharyngeal achalasia, with hiatal hernia and reflux . EGD from 12/31/2020 showing gastritis and hiatal hernia; LES and UES were both dilated with a balloon. Plan at the time was for aggressive acid reflux control with twice daily PPI. Future considerations were for esophageal manometry, pH/impedance study, and possible hiatal hernia repair. She previously reported continued episodes of suspected aspiration. She continues on a PPI twice daily. It is unclear whether her symptoms are due to achalasia requiring endoscopic or surgical intervention versus refractory GERD or a combination of the two. I again recommend ongoing evaluation and management of these issues with her manager financial reporting. She has transition care to [facility] who is managing these issues Assessment & Plan (07/09/2022 4:34 PM EST): Historically with significant reflux symptoms. ??She is followed by Dr. Llanes at [facility]. ??She had an abnormal barium swallow with lesion anterior aspect proximal cervical esophagus and prominent cricopharyngeal achalasia, with hiatal hernia and reflux . ??EGD from 12/31/2020 showing gastritis and hiatal hernia; LES and UES were both dilated with a balloon. ??Plan at the time was for aggressive acid reflux control with twice daily PPI for at least 3 months. ??Future considerations were for esophageal manometry, pH/impedance study, and possible hiatal hernia repair. ??She reports continued episodes of aspiration which occur multiple times per week. She continues on a PPI twice daily. It is unclear whether her symptoms are due to achalasia requiring endoscopic or surgical intervention versus refractory GERD or a combination of the two. ??I again recommend ongoing evaluation and management of these issues with her manager financial reporting. Assessment & Plan (05/05/2021 11:51 AM EDT): Historically with significant reflux symptoms. She is followed by Dr. Llanes at [facility]. She had an abnormal barium swallow with lesion anterior aspect proximal cervical esophagus and prominent cricopharyngeal achalasia, with hiatal hernia and reflux . EGD from 12/31/2020 showing gastritis and hiatal hernia; LES and UES were both dilated with a balloon. Plan at the time was for aggressive acid reflux control with twice daily PPI for at least 3 months. Future considerations were for esophageal manometry, pH/impedance study, and possible hiatal hernia repair. She reports continued episodes of aspiration which occur multiple times per week. Recommend ongoing evaluation and management of these issues with her manager financial reporting. Assessment & Plan (02/23/2021 12:47 PM EDT): Significant reflux symptoms despite taking pantoprazole twice daily. She is followed by Dr. Llanes at [facility]. She had an abnormal swallow study, has a hiatal hernia, and underwent some kind of endoscopic dilation. Per patient, she is getting a pH/impedance study performed in the near future -Obtain records from [facility] (Dr. Llanes) -Follow-up results of pH/impedance study, remainder of GI workup -Obtain results of recent swallow study, as above Allergic rhinitis 02/23/2021 Assessment & Plan (12/21/2023 8:53 PM EDT): Follows with consulting software engineer in [place] and gets allergy shots. On ulair. Assessment & Plan (09/20/2023 4:30 PM EDT): Follows with consulting software engineer in [place] and gets allergy shots. On ulair. Assessment & Plan (07/09/2022 4:35 PM EST): Follows with consulting software engineer in [place] and gets allergy shots. On ulair. Assessment & Plan (05/05/2021 11:52 AM EDT): Follows with consulting software engineer in [place] and gets allergy shots. On Singulair. Assessment & Plan (02/23/2021 12:47 PM EDT): Follows with consulting software engineer in [place] and gets allergy shots. Taking Singulair. Diabetes type 2, controlled 11/01/2017 Hyperlipidemia 11/01/2017 Assessment & Plan (10/24/2024 11:02 AM EDT): Given her type 2 diabetes LDL should be less than 70 by guidelines. Last lipid profile through [facility] from a couple years ago had an LDL in the 120s. She is pending repeat labs she says. If LDL not at goal on next labs would be reasonable to double the atorvastatin to 80 mg and see how she tolerates this. Previously she had some myalgias with other statins. If she has any issues on the elevated dose of atorvastatin could always drop back down to 40 mg and just add on Zetia Hypertension 11/01/2017 Assessment & Plan (10/24/2024 11:00 AM EDT): Blood pressure well-controlled here in the office today. Current medications will continue without change. Assessment & Plan (06/03/2020 2:36 PM EST): Blood pressure in the office today was 122/64. Her current medications take diltiazem 180 mg daily. Palpitations 11/01/2017 Assessment & Plan (10/24/2024 11:00 AM EDT): Still having symptoms of this a couple times a week, lasting about 10 minutes. Just feels a racing heart no other associated symptoms of concern. She is taking diltiazem as prescribed. Overall her symptoms are unchanged over many years. Continue with diltiazem Encounters Date Type Department Care Team Description 10/24/2024 10:30 AM EDT Office Visit [facility] [address], [address] [place] [address] Zahida Coleman CNP Palpitations (Primary Dx); Primary hypertension; Shortness of breath; Mixed hyperlipidemia; Dizziness and giddiness 09/15/2024 Refill [facility] [address] [facility] [place] [address] Kj George MD, MS Medication Refill from Last 3 Months Immunizations Name Administration Dates Next Due COVID-19 (Pre-05/02) Pfizer Vaccine, mRNA, PF ,10/19/2020 Influenza Quadrivalent Preservative Free IM 04/10,04/10/2018 Influenza Trivalent Preservative Free IM 016 Influenza Trivalent w/ Preservative IM ,04/07/2017 Pneumococcal polysaccharide PPSV23 10/27/2017 Td (adult),2 Lf Tetanus Toxoid, PF, Adsorbed Zoster recombinant 10/27/2017 Social History Tobacco Use Types Packs/Day Years Used Date Smoking Tobacco: Former Cigarettes Q uit: 11/02/1987 Smokeless Tobacco: Never Tobacco Cessation:Counseling Given: Not Answered Alcohol Use Standard Drinks/Week Comments Yes 0 (1 standard drink = 0.6 oz pur e alcohol) Education Answer Date Recorded Are you interested in more education? Not on julio e 11/19/2022 Are you concerned about learning? Not on file 11/19/2022 No 11/19/2022 No 11/19/2022 Digital Access Answer Date Recorded No 12/05/2022 No 12/05/2022 Reliable internet access at home? Not on file 12/05/2022 Device with a working camera? Not on file Sex and Gender Information Value Date Recorded Sex Assigned at Not on file Gender Identity Not on file Sexual Orientation Not on file Last Filed Vital Signs Vital Sign Reading Time Taken Comments Blood Pressure 124/60 10/24/2024 10:22 AM EDT Pulse 91 10/24/2024 10:22 AM EDT Temperature 36.3 ??C (97.4 ??F) 12/22/2023 11:01 AM E DT Respiratory Rate - - Oxygen Saturation 98% 12/22/2023 11:01 AM EDT Inhaled Oxygen Concentration - - Weight 68.9 kg (152 lb) 10/24/2024 10:22 AM EDT Height 160 cm (5' 2.99 ) 10/24/2024 10:22 AM EDT Body Mass Index 26.93 10/24/2024 10:22 AM EDT Plan of Treatment Upcoming Encounters Date Type Department Care Team (Late st Contact Info) Description 10/24/2025 10:40 AM EDT Office Visit [facility] [address] [place] [address] [address] Floor, [address] [place] [address] Avelino Vizcarra MD [address] [facility], [address] [place] [address] [email or web address] Health Maintenance Due Date Last Done Comments HEMOGLOBIN A1C 1963 DEPRESSION SCREENING 1975 HEPATITIS C SCREENING 1981 HIV ONE-TIME SCREENING (18-6 5 YEARS) 1981 PAP SMEAR 1984 MAMMOGRAM 2003 COLOGUARD 2008 COLONOSCOPY 2008 COLORECTAL CANCER SCREENING 2008 FIT TEST 2008 FOBT 2008 SIGMOIDOSCOPY 2008 VIRTUAL COLONOSCOPY 2008 DIABETIC EYE EXAM 11/01/2017 ZOSTER VACCINES (2 of 2) 12/22/2017 10/27/2017 CREATININE LEVEL 05/05/2022 05/05/2021 POTASSIUM LEVEL 05/05/2022 05/05/2021 TSH LEVEL 05/05/2022 05/05/2021 RSV VACCINE (1 - Risk 60-74 years 1-dose series) 2023 COVID-19 VACCINE (4 - 2023-2 5 season) 2024 06/11/2021, 11/09/2020, 10/19/2020 SMOKING Hx and SMOKELESS TOBACCO SCREENING 12/21/2024 12/22/2023 BLOOD PRESSURE 04/25/2025 10/24/2024 PNEUMOCOCCAL VACCINES (50+ years) (3 of 3 - PCV20 or PCV21) 05/12/2026 05/12/2021, 10/27/2017 Adult Td,Tdap Booster 02/29/2028 02/28/2018 HEPATITIS A VACCINES Aged Out No long er eligible based on patient's age to complete this topic HIB VACCINES Aged Out No longer eligi ble based on patient's age to complete this topic MENINGOCOCCAL VACCINES (ACWY) Aged Out No longer eligible based on patient's age to complete this topic Medical Devices Not on file Procedures Procedure Name Priority Date/Time Associated Diagnosis Comments TSH WITH REFLEX Routine 05/05/2021 11:57 AM EDT Shortness of breath COMPREHENSIVE METABOLIC PANEL Routine 05/05/2021 11:57 AM EDT Shortness of breath from Last 3 Months or Most Recently Relevant to Health Maintenance Results * (ABNORMAL) Comprehensive metabolic panel (05/05/2021 11:57 AM EDT) SODIUM 138 133 - 146 mmol/L [facility] POTASSIUM 4.0 3.3 - 5.1 mmol/L [facility] CHLORIDE 101 96 - 108 mmol/L [facility] CO2 27 21 - 35 mmol/L [facility] BUN 19 6 - 19 mg/dL [facility] CREATININE 0.90 0.5 - 1.5 mg/dL [facility] GLUCOSE 119(H) 70 - 99 mg/dL [facility] ALBUMIN 4.5 3.9 - 4.8 g/dL [facility] TOTAL PROTEIN 7.0 6.5 - 8.0 g/dL [facility] CALCIUM 9.5 8.4 - 10.3 mg/dL [facility] ALKALINE PHOSPHATASE 56 39 - 117 U/L [facility] TOTAL BILIRUBIN 0.3 0.0 - 1.2 mg/dL [facility] AST 19 0 - 37 U/L [facility] ALT 28 0 - 40 U/L [facility] GLOBULIN 2.5 1 - 4.8 g/dL [facility] EGFR 70 >59 mL/min/1.7 3m2 [facility] Comment:Estimated glomerular filtration rate calculated using the CKD-EPI equation. ANION GAP 14 10 - 20 mmol/L [facility] Blood 05/05/2021 11:5 7 AM EDT 05/05/2021 3:33 PM EDT Guanaco Kelsey MD LAB BLOOD BRIAN LOCO [facility] [address] [place] [address] * TSH with reflex (05/05/2021 11:57 AM EDT) TSH 2.15 0.27 - 4.20 uIU/mL [facility] Blood 05/05/2021 11:5 7 AM EDT 05/05/2021 3:33 PM EDT Guanaco Kelsey MD LAB BLOOD BRIAN Rae Organization Address City/State/ZIP Co de Phone Number [facility] [address] [place] [address] from Last 3 Months or Most Recently Relevant to Health Maintenance Bianca, Gracia Personal/Family Self [address] [place] [address] [place], [place] Personal/Family Self [address] [place] [address] Bianca, Gracia Personal/Family Self [address] [place] [address] [place], Gr[place] Personal/Family Self [address] [place] [address] [place], [place] Personal[place]Family Self [address] [place] [address] [place], Gracia Personal[place]Family Self [address] [place] [address] [place], [place] Personal[place]Family Self [address] [place] [address] [place], [place] Personal/Family Self [address] [place], [place] [address] Bianca, Gracia Personal/Family Self [address] [place] [address] [place], [place] Personal/Family Self [address] [place] [address] Bianca, Gracia Personal/Family Self [address] [place], [place] [address] Bianca, Gracia Personal/Family Self [address] [place], [place] [address] [place], [place] Personal/Family Self [address] [place], [place] [address] [place] Personal/Family Self [address] [place] [address] [place] Personal/Family Self [address] [place], [place] [address] [place], [place] Personal/Family Self [address] [place], [place] [address] Bianca, Gracia Personal/Family Self [address] [place] [address] Care Teams Food Service Coordinator Relationship Specialty Start Date End Date Nhung Garcia PA [address] [facility] [place] [address] PCP - General Physician Digester 09/21/23 Dominic Mcgraw MD [email or web address] Historical LMR Provider 04/28/17 Additional Source Comments The information contained in this document represents components of the legal health record. It is not the complete legal health record.[facility]
[2024-10-31 09:56] VITALS: BP 113/65; PULSE 80; RESP 20; TEMP 36.6; O2SAT 99
--- NOTE | 2024-10-31 10:10 | HO.ANESPROP2 ---
HPI - Anesthesia Eval Consult details Narrative: 59 yo female patient for EGD with balloon dilatation Anesthesia Pre-Procedure Meds Is the patient on any of the following meds?: GLP1/DPP4 (Last dose of Tirzepatide 10/22/24) If yes to any meds - educate patient: Pt education - increased risk of aspiration and/or euvolemic DKA PMFSH Active Problems Active Problems: All Active Problems (Updated 10/26/24 @ 12:20 by Jessica Kerr RN) Postoperative stitch abscess (Acute) Status post left inguinal hernia repair (Acute) Status post umbilical hernia repair, follow-up exam (Acute) Left inguinal hernia (Acute) Umbilical hernia (Acute) Binge-eating disorder, mild (Acute) Generalized anxiety disorder (Acute) Obesity (BMI 30-39.9) (Acute) Hiatal hernia (Acute) Dysphagia (Acute) Past Medical History Medical History Insulin pump in place Hx of viral pneumonia Palpitations COVID-19 vaccine series completed Dysphagia GERD (gastroesophageal reflux disease) LISSET (obstructive sleep apnea) Paroxysmal supraventricular tachycardia Vitamin D deficiency Allergic rhinitis Depression Anxiety Hypothyroidism Hyperlipidemia HTN (hypertension) Type II diabetes mellitus Family History Family History Mother Diabetes High cholesterol Family history of problems with anesthesia: No Surgical History Surgical History Hx of left inguinal hernia repair H/O right knee surgery History of esophagogastroduodenoscopy (EGD) Hx of shoulder surgery Hx of elbow surgery History of carpal tunnel release Hx of unilateral salpingectomy History of Problems with Anesthesia: No Social History Social History Are you a primary healthcare economics manager to a significant other at home: No Do you presently have visiting nurse or other home services: No Alcohol intake: never Patient Tobacco Use Status: Former Tobacco user Tobacco use type: Cigarette Use of substances other than those prescribed or required for medical reasons: No Substance Use Frequency: Daily Have you been hit, kicked, punched, or otherwise hurt by someone within the past year? If so, by whom?: No Spiritual Healthcare Practices: no Sikh Healthcare Practices: no-Moravian Cultural Healthcare Practices: no Are you DNR?: No Advance Directives: No (daughter is primary contact) Advance Directives Information Provided: Yes (as above noted) Advance Directives on File: No FDLMP: n/a Meds Allergies Allergy/AdvReac Type Severity Reaction Status Date / Time clindamycin Allergy Intermediate Rash Verified 10/26/24 12:27 codeine Allergy Intermediate Nausea Verified 10/26/24 12:03 doxycycline Allergy Intermediate Rash Verified 10/26/24 12:27 erythromycin base Allergy Intermediate Rash Verified 10/26/24 12:03 vancomycin Allergy Mild Rash Verified 10/26/24 12:27 Home Medications ?Medication ?Instructions ?Recorded ?Confirmed ?Last Taken ?Type atorvastatin 40 mg tablet 40 mg PO DAILY 12/19/20 10/26/24 Unknown History cetirizine 10 mg capsule (Zyrtec) 10 mg PO DAILY PRN Allergy Symptoms 12/19/20 10/26/24 Unknown History cholecalciferol (vitamin D3) 25 25 mcg PO DAILY 12/19/20 10/26/24 Unknown History mcg (1,000 unit) capsule cyclobenzaprine 10 mg tablet 10 mg PO BEDTIME 12/19/20 10/26/24 Unknown History diltiazem HCl 180 mg 180 mg PO DAILY 12/19/20 10/31/24 10/31/24 History capsule,extended release 24 hr (Cardizem CD) montelukast 10 mg tablet 10 mg PO DAILY 12/19/20 10/26/24 Unknown History sertraline 50 mg tablet 50 mg PO DAILY 04/20/24 10/26/24 Unknown History trazodone 150 mg tablet 150 mg PO BEDTIME 04/20/24 10/26/24 Unknown History albuterol sulfate 90 mcg/actuation 2 puff inhalation Q4H PRN 05/03/24 10/26/24 Unknown History aerosol inhaler (Ventolin HFA) Shortness Of Breath Or Wheezing budesonide-formoterol HFA 80 1 inh inhalation BID 05/03/24 10/31/24 10/31/24 History mcg-4.5 mcg/actuation aerosol inhaler (Symbicort) enalapril maleate 5 mg tablet 5 mg PO DAILY 05/03/24 10/26/24 Unknown History tiotropium bromide 2.5 2 puff inhalation DAILY 05/03/24 10/31/24 10/31/24 History mcg/actuation mist for inhalation (Spiriva Respimat) insulin lispro 100 unit/mL subcut 07/30/24 Unknown History subcutaneous pen levothyroxine 50 mcg tablet 50 mcg PO DAILY 07/30/24 10/26/24 Unknown History meclizine 12.5 mg tablet 12.5 mg PO 3XD PRN Vertigo 07/30/24 10/26/24 Unknown History sertraline 100 mg tablet 100 mg PO DAILY 07/30/24 10/26/24 Unknown History tirzepatide 5 mg/0.5 mL 5 mg subcut QWEEK 07/30/24 10/31/24 10/22/24 History subcutaneous pen injector (Mounjaro) Exam Height,Weight and Vital Signs: Height 5 ft 3 in Weight 70.307 kg Last Vital Signs Temp 97.8 F 10/31/24 09:56 Pulse 80 10/31/24 09:56 Resp 20 10/31/24 09:56 BP 113/65 10/31/24 09:56 Pulse Ox 99 10/31/24 09:56 O2 Del Method Room Air 10/31/24 09:56 Pertinent Lab Results Pertinent Lab Results: BS 114 Airway Mallampati Class: II TM Dist: >3cm Neck ROM: Full Partial: Lower Loose/Missing/Broken Teeth: Yes (Missing tooth top back left) Heart: RRR Lungs: CTAB Assessment and Plan Assessment Anesthesia Assessment: Anesthesia Plan Discussed and Chart Reviewed Final Anesthetic Review Family History of Problems with Anesthesia: No History of Problems with Anesthesia: No NPO: Yes ASA Class: III Final Preanesthetic Review: No Changes in Pt Med Stat, Meds/Allgs Chart Reviewed, Consent Obtained/Reviewed and Anes Risks/Benef Reviewed Patient Risk: Intermediate Procedure Risk: Low Assessment/Block/Sedation in SS: Assess/Block/Sedation-SS Anesthetic Plan Anesthetic Plan: TIVA Disposition: Standard PACU
--- NOTE | 2024-10-31 10:12 | MHC.SHP ---
Pre-Procedural Eval Section A - 24 Hr Update-Section A only Date of Service: 10/31/24 Section B - Complete if H&P > 30 days Chief Complaint: Dysphagia, unspecified Relevant Family History (Specify if Yes): No Relevant Social History: None Present Medications: see Short Stay Collaborative assessment Medical History: Significant History (Insulin pump in place Hx of viral pneumonia Palpitations COVID-19 vaccine series completed Dysphagia GERD (gastroesophageal reflux disease) LISSET (obstructive sleep apnea) Paroxysmal supraventricular tachycardia Vitamin D deficiency Allergic rhinitis Depression Anxiety Hypothyroidism Hyperlipidemia HT) History of Previous Operations: Relevant previous surgery/procedure and date(s) (H/O right knee surgery History of esophagogastroduodenoscopy (EGD) Hx of shoulder surgery Hx of elbow surgery History of carpal tunnel release Hx of unilateral salpingectomy) Allergies: Allergies Allergy/AdvReac Type Severity Reaction Status Date / Time clindamycin Allergy Intermediate Rash Verified 10/26/24 12:27 codeine Allergy Intermediate Nausea Verified 10/26/24 12:03 doxycycline Allergy Intermediate Rash Verified 10/26/24 12:27 erythromycin base Allergy Intermediate Rash Verified 10/26/24 12:03 vancomycin Allergy Mild Rash Verified 10/26/24 12:27 Review of Systems Sugical H&P ROS: Negative: Constitution, Cardiovascular, Respiratory, Neurological, Psychiatric, Hem-Onc, Allergic/Immunologic, Gastrointestinal, Genitourinary, Musculoskeletal, Integumentary, Endocrine and Eyes/Ears/Nose/Throat Exam Surgical H&P Exam: Normal: HEENT, Normal: Heart, Normal: Lungs, Normal: Extremities, Normal: Abdomen, Normal: Skin and Normal: Neurological Plan Diagnosis/Plan: Unchanged I have reviewed the history and physical and performed a pertinent physical examination on my patient. No changes have occurred unless specified. Time Spent With Patient Time: Total time managing care of this patient today ____ minutes.
--- NOTE | 2024-10-31 11:07 | W.PM.OPN ---
Operative Note Operative Note Date of Service: 10/31/24 Narrative: Procedure Description: EGD Indication: dysphagia Anesthesia: MAC FLEXIBLE TRANSORAL UPPER GASTROINTESTINAL ENDOSCOPY UPPER ENDOSCOPY Consent: Indications for the procedure and potential complications of bleeding, perforation, reaction to medications and missed diagnosis were discussed with the patient and informed consent was obtained. Instrument: Olympus GIF H 190 J mid size upper endoscope Monitoring: Vital signs and clinical assessment, continuous EKG monitoring, Pulse oximetry, Carbon Dioxide monitoring and blood pressure monitoring were done throughout the procedure. Procedure: The patient was placed in the left lateral decubitis position and pre-procedure medications were administered and a bite block was placed. The endoscope was inserted into the mouth and advanced under direct vision to the third part of duodenum. A careful inspection was made as the upper endoscope was withdrawn including a retroflexed examination of the proximal stomach; Findings and interventions are described below. Findings: Larynx:normal Esophagus: GE junction at 30 cm, diaphragm hiatus at 33 cm, 3 cm sliding hiatal hernia noted, bx taken from GRJ, distal esophagus, also small inlet patch noted. The LES and UES were both dilated using a balloon to 20 mm, no tear seen but resistance felt. Stomach: Patchy gastric erythema in the pre antrum area. Biopsies were obtained. Grade 2 flap valve on retroflexed examination of the cardia. small fundic gland polyps noted. The pylorus was tight and dilated using balloon to 20 mm. no tears seen. Duodenum: Normal bulb and descending duodenum, bx taken Intervention: Biopsies as noted above, balloon dilation Impression/Findings: gastritis hiatal hernia fundic gland polyps PLAN: reflux precautions cont with PPI consider surgical repair of hernia if ongoing sx
[2024-10-31 11:12] VITALS: BP 128/67; PULSE 106; RESP 23; TEMP 37.4; O2SAT 99
[2024-10-31 11:27] VITALS: BP 133/71; PULSE 95; RESP 20; TEMP 36.9; O2SAT 99
== END 2024-10-31 11:55 | disposition home or self-care (01) ==
PROVIDERS: PCP Physician Assistant Medical; Visit Provider Internal Medicine Gastroenterology
PROC: (CPT 43249; principal; 2024-10-31 11:10)
DX: R13.14 Dysphagia, pharyngoesophageal phase (principal); K29.70 Gastritis, unspecified, without bleeding; K31.7 Polyp of stomach and duodenum; K44.9 Diaphragmatic hernia without obstruction or gangrene; K21.9 Gastro-esophageal reflux disease without esophagitis; K22.89 Other specified disease of esophagus; G47.33 Obstructive sleep apnea (adult) (pediatric); J30.9 Allergic rhinitis, unspecified; I10 Essential (primary) hypertension; I47.10 Supraventricular tachycardia, unspecified; E78.5 Hyperlipidemia, unspecified; E03.9 Hypothyroidism, unspecified; E55.9 Vitamin D deficiency, unspecified; E11.9 Type 2 diabetes mellitus without complications; Z96.41 Presence of insulin pump (external) (internal); Z79.4 Long term (current) use of insulin; Z79.899 Other long term (current) drug therapy; Z88.1 Allergy status to other antibiotic agents; Z88.5 Allergy status to narcotic agent; Z98.890 Other specified postprocedural states; Z87.891 Personal history of nicotine dependence
CPT/HCPCS: 43249; 43239; 88305; 88313; 88342; C1726; J1596; J2003; J2704

== ENCOUNTER → 2024-10-31 08:58 | Outpatient (BNV) | payer OTHER, SELFPAY | PROVIDERS: PCP Physician Assistant Medical; Visit Provider Internal Medicine Gastroenterology | DX: R13.10 Dysphagia, unspecified (principal); K31.7 Polyp of stomach and duodenum; K29.70 Gastritis, unspecified, without bleeding | CPT/HCPCS: 43239; 43249 ==

== ENCOUNTER 2024-11-26 12:04 | Outpatient (AMB) | payer OTHER, SELFPAY ==
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
[2024-11-26 12:15] VITALS: BP 113/67; PULSE 86; O2SAT 97; BMI 26.2
--- OUTSIDE RECORDS SUMMARY | 2024-11-26 12:34 | XMS_ITS | Clinical Summary ---
Author Organization [facility] Address [address] [place] [address] Phone Care Team Providers Care Household Personal Assistant Name Role Phone Dominic Mcgraw MD Unavailable [phone] Nhung Garcia Primary Care Provider [phone] Allergies Active Allergy Reactions Criticality Noted Date Comments Clindamycin Hcl 11/02/2018 Codeine 11/01/2017 Doxycycline Calcium 11/02/2018 Vancomycin 11/02/2018 Medications ibuprofen (ADVIL,MOTRIN) 800 MG tablet Take 1 [...] at bedtime. Active lidocaine (LIDODERM) 5 % 1 Active enalapril (VASOTEC) 5 MG tablet Take 5 mg by mouth daily. Active dilTIAZem (CARDIZEM CD) 180 MG 24 hr capsuleIndication s:Palpitations TAKE ONE CAPSULE BY MOUTH TWICE A DAY 180 capsule 3 3 Active meclizine (ANTIVERT) 12.5 mg tablet Take 12.5 mg by mouth as needed. 4 Active methylPREDNISolon e (MEDROL DOSEPACK) 4 mg tablet as needed (respiratory infection). 4 Active sertraline (ZOLOFT) 100 MG tablet Take 100 mg by mouth nightly at bedtime. Total dose 125mg, takes 100mg and 25mg 4 Active MOUNJARO 5 mg/0.5 mL PnIj Inject 5 mg under the skin once a week. 4 Active SPIRIVA RESPIMAT 2.5 mcg/actuation mist for inhalationIndicat ions:Shortness of breath,Moderate persistent asthma without complication TAKE 2 PUFFS INTO THE LUNGS DAILY 4 g 5 5 Active SYMBICORT 80-4.5 mcg/actuation inhalerIndication s:Moderate persistent asthma without complication INHALE 2 PUFFS INTO LUNGS TWO TIMES A DAY 10.2 g 5 5 Active budesonide (RHINOCORT AQUA) 32 mcg/actuation nasal spray 5 Active sertraline (ZOLOFT) 50 MG tablet 5 Active esomeprazole (NEXIUM) 20 MG capsule Take 20 mg by mouth daily before breakfast. Active Active Problems Problem Noted Date Diagnosed Date [...] -Per patient, she had PFTs performed at [facility] recently--we will obtain the PFT report [...] 8:53 PM EDT): Had pneumonia in early 2017 (severe MRSA pneumonia complicated by bilateral empyema requiring chest tube placement, prolonged hospitalization at [facility]) and in 10/2019 (thought to be [...] requiring chest tube placement, prolonged hospitalization at [facility]) and in 10/2019 (thought to be [...] requiring chest tube placement, prolonged hospitalization at [facility]) and in 10/2019??(thought to be viral [...] 11:49 AM EDT): Had pneumonia in early 2017 (severe MRSA pneumonia complicated by bilateral empyema requiring chest tube placement, prolonged hospitalization at [facility]) and in 10/2019 (thought to be [...] empyema requiring chest tubes, prolonged hospitalization at [facility]) and in 10/2019 (thought to be [...] changes. -Obtain CT chest -Obtain records from [facility] (CT chest images, summary of hospitalization in 2018) -Obtain records of recent swallow study performed at [facility] Marijuana smoker 02/23/2021 Assessment & [...] was previously followed by Dr. Llanes at [facility]. She had an abnormal barium [...] with gastroenterology. She was previously followed at [facility] and is in the process of transitioning her care to [facility]. Assessment & Plan (09/21/2023 11:10 AM EDT): Historically with significant reflux symptoms. She was previously followed by Dr. Llanes at [facility]. She had an abnormal barium [...] and management of these issues with her it programmer analyst. She has transition care to [facility] who is managing these issues Assessment & Plan (07/09/2022 4:34 PM EST): Historically with significant reflux symptoms. ??She is followed by Dr. Llanes at [facility]. ??She had an abnormal barium swallow with [...] and management of these issues with her it programmer analyst. Assessment & Plan (05/05/2021 11:51 AM EDT): Historically with significant reflux symptoms. She is followed by Dr. Llanes at [facility]. She had an abnormal barium [...] and management of these issues with her it programmer analyst. Assessment & Plan (02/23/2021 12:47 PM EDT): Significant reflux symptoms despite taking pantoprazole twice daily. She is followed by Dr. Llanes at [facility]. She had an abnormal swallow study, has a hiatal hernia, and underwent some kind of endoscopic dilation. Per patient, she is getting a pH/impedance study performed in the near future -Obtain records from [place] [facility] (Dr. Llanes) -Follow-up results of pH/impedance study, remainder of GI workup -Obtain results of recent swallow study, as above Allergic rhinitis 02/23/2021 Assessment & Plan (12/21/2023 8:53 PM EDT): Follows with contracts paralegal in [place] and gets allergy shots. On Singulair. Assessment & Plan (09/20/2023 4:30 PM EDT): Follows with contracts paralegal in [place] and gets allergy shots. On Singulair. Assessment & Plan (07/09/2022 4:35 PM EST): Follows with contracts paralegal in [place] and gets allergy shots. On Singulair. Assessment & Plan (05/05/2021 11:52 AM EDT): Follows with contracts paralegal in [place] and gets allergy shots. On Singulair. Assessment & Plan (02/23/2021 12:47 PM EDT): Follows with contracts paralegal in [place] and gets allergy shots. Taking Singulair. Diabetes type 2, controlled 11/01/2017 Hyperlipidemia 11/01/2017 Assessment & Plan (10/24/2024 11:02 AM EDT): Given her type 2 diabetes LDL should be less than 70 by guidelines. Last lipid profile through [facility] from a couple years ago had [...] Description 10/24/2024 10:30 AM EDT Office Visit [facility] [address] [place] [address] 3rd Floor, [address] [place] [address] Zahida Coleman CNP Palpitations (Primary Dx); Primary hypertension; Shortness of breath; Mixed hyperlipidemia; Dizziness and giddiness 09/15/2024 Refill [facility] [address] [place], [place] [id number] Kj George MD, MS Medication Refill from Last 3 Months Immunizations Immunization Administration Dates Next Due COVID-19 (Pre-05/02) Pfizer Vaccine, mRNA, PF ,10/19/2020 Influenza Quadrivalent Preservative Free IM 04/10,04/10/2018 Influenza Trivalent Preservative Free IM 016 Influenza Trivalent w/ Preservative IM 1,04/07/2017 Pneumococcal polysaccharide PPSV23 10/27/2017 Td (adult),2 Lf [...] with a working camera? Not on file Comments Unknown Sex and Gender Information Value Date Recorded Sex Assigned at Not on file Legal Sex Female 5:15 PM EST Gender Identity Not on file Sexual Orientation [...] Description 10/24/2025 10:40 AM EDT Office Visit [facility] [address] [place] [address] 3rd Floor, [address] [place] [address] Avelino Vizcarra MD [address] [place] [address], [address] [place] [address] [email or web address] Maintenance Due Date Last Done Comments [...] age to complete this topic MENINGOCOCCAL VACCINES (B) Aged Out N o longer eligible based on patient's age to [...] EDT) SODIUM 138 133 - 146 mmol/L [facility] POTASSIUM 4.0 3.3 - 5.1 mmol/L [facility] CHLORIDE 101 96 - 108 mmol/L [facility] CO2 27 21 - 35 mmol/L [facility] BUN 19 6 - 19 mg/dL [facility] CREATININE 0.90 0.5 - 1.5 mg/dL [facility] GLUCOSE 119(H) 70 - 99 mg/dL [facility] ALBUMIN 4.5 3.9 - 4.8 g/dL [facility] TOTAL PROTEIN 7.0 6.5 - 8.0 g/dL [facility] CALCIUM 9.5 8.4 - 10.3 mg/dL [facility] ALKALINE PHOSPHATASE 56 39 - 117 U/L [facility] TOTAL BILIRUBIN 0.3 0.0 - 1.2 mg/dL [facility] AST 19 0 - 37 U/L [facility] ALT 28 0 - 40 U/L [facility] GLOBULIN 2.5 1 - 4.8 g/dL [facility] EGFR 70 >59 mL/min/1.7 3m2 [facility] Comment:Estimated glomerular filtration rate calculated using the CKD-EPI equation. ANION GAP 14 10 - 20 mmol/L [facility] Blood 05/05/2021 11:5 7 AM EDT 05/05/2021 3:33 PM EDT us Guanaco Kelsey MD LAB BLOOD ORDERABLES F inal Result [facility] [address] [place] [address] * TSH with reflex (05/05/2021 11:57 AM EDT) TSH 2.15 0.27 - 4.20 uIU/mL [facility] Blood 05/05/2021 11:5 7 AM EDT 05/05/2021 3:33 PM EDT Guanaco Kelsey MD LAB BLOOD ORDERABLES F inal Result [facility] [address] [place] [address] from Last 3 Months or Most Recently Relevant to Health Maintenance Insurance [address] [place] [address] [employer]NERSHIP [employer] PARTNER[employer]IP [employer] [address] [place] [address] [employer] [address] [place] [address] [employer] [address] [place] [address] [employer]IP [employer] [address] [place] [address] [employer]IP [employer]CO [address] [place] [id number] [place] [address] [employer]IP [employer] [address] [place] [id number] [place] [address] ACO [address] [place] [phone] [place] [address] PARTNERSHIP ACO [facility] [address] [place] [address] [facility] ACO [address] [place] [address] [facility] A[facility] Care Teams Household Personal Assistant Relationship Specialty Start Date End Date Nhung Garcia PA [address] [place] [address] PCP - General Physician Scrubber System Attendant 09/21/23 Dominic Mcgraw MD [email or web address] Historical LMR Provider 04/28/17 Additional Source Comments The information contained in this document represents components of the legal health record. It is not the complete legal health record.[facility]
--- OUTSIDE RECORDS SUMMARY | 2024-11-26 12:34 | XMS_ITS | Referral Summary ---
Author Organization [facility] Address [address] [id number] Care Team Providers Care Vocational Placement Specialist Name Role Phone Nhung Garcia Primary Care Provider [phone] Allergies Active Allergy Reactions Criticality Noted Date [...] Not on file Procedures * Due to [place] Ringpay law, this organization might not be sharing negative HIV tests. Procedure Name Priority Date/Time Associated Diagnosis Comments COMPREHENSIVE METABOLIC PANEL STAT 02/20/2024 1:08 PM EDT from Last 3 Months or Most Recently Relevant to Health Maintenance Results * Due to [place] Ringpay law, this organization might not be sharing negative HIV tests. * (ABNORMAL) Comprehensive Metabolic Panel (02/20/2024 1:08 PM EDT) NA 140 136 - 145 mmol/L 02/20/2024 1:37 PM EDT [facility] K 3.7 3.5 - 5.1 mmol/L 02/20/2024 1:37 PM EDT [facility] Cl 102 98 - 109 mmol/L 02/20/2024 1:37 PM EDT [facility] CO2 26 23 - 32 mmol/L 02/20/2024 1:37 PM EDT [facility] Anion Gap 16 >=0 02/20/2024 1:37 PM EDT [facility] Glucose 115(H) 60 - 99 mg/dL 02/20/2024 1:37 PM EDT [facility] Creatinine 0.77 0.50 - 1.12 mg/dL 02/20/2024 1:37 PM EDT [facility] Calcium 9.0 8.4 - 10.4 mg/dL 02/20/2024 1:37 PM EDT [facility] Total Protein 6.0(L) 6.6 - 8.7 g/dL 02/20/2024 1:37 PM EDT [facility] Albumin 3.8 3.5 - 5.0 g/dL 02/20/2024 1:37 PM EDT [facility] Bilirubin, Total 0.2 0.2 - 1.0 mg/dL 02/20/2024 1:37 PM EDT [facility] Alkaline Phosphatase 66 40 - 129 U/L 02/20/2024 1:37 PM EDT [facility] AST 15 0 - 33 U/L 02/20/2024 1:37 PM EDT [facility] ALT 22 <=33 U/L 02/20/2024 1:37 PM EDT [facility] BUN 12 8 - 23 mg/dL 02/20/2024 1:37 PM T [facility] eGFR 88 >=60 mL/min/1. 73m2 02/20/2024 1:37 PM T [facility] Comment:The estimated glomer ular filtration [...] - 4.2 g/dL 02/20/2024 1:37 PM T [facility] A/G Ratio 1.7 1.5 - 3.0 02/20/2024 1:37 PM [facility] Blood Structure of peripheral vein / Unknown Venipuncture / Unknown 02/20/2024 1:08 PM EDT 02/20/2024 1:14 PM EDT us Momo Badillo MD LAB BLOOD ORDERABLES Final Result [facility] [address] [place] [address], [place] [phone] from Last 3 Months or Most Recently Relevant to Health Maintenance Insurance [id number] MEDICAID Care Teams Vocational Placement Specialist Relationship Specialty Start Date End Date Nhung Garcia [facility] [place] [phone] PCP - General Physician Director Of Market Intelligence 02/20/24
--- OUTSIDE RECORDS SUMMARY | 2024-11-26 12:34 | XMS_ITS | Encounter Summary ---
Author Organization [facility] Address [address] [place] [address] Phone Care Team Providers Care Project Engineering Manager Name Role Phone Dominic Mcgraw MD Unavailable [phone] Sonny Bob MD Unavailable [phone] Gloria Sheriff MD Primary Care Pro vider Reyna Bonilla NP Primary Care Provi ha Reyna Bonilla NP Primary Care Provi ha Nhung Garcia Primary Care Provider [phone] Encounter Details Date Type Department Care Team (Late st Contact Info) Description 03/18/2021 Ancillary Orders [facility],Outside Imaging [address] [place], [place] [phone] System, Provider Not In, [place] [address] Social History Tobacco Use Types Packs/Day Years [...] Description 10/24/2025 10:40 AM EDT Office Visit [facility] [address] [place] [address] [address]rd Floor, [address] [place] [address] Avelino Vizcarra MD [address] [facility], [address] [place] [address] [email or web address] documented as of this encounter Results * CT Chest Outside (No Interpretation) (01/14/2021 12:00 AM EDT) Narrative SYSTEMGENERATED, DOCUMENTATION - 03/18/2021 9:29 AM EDT This study is for PACS storage only and not for interpretation. us Provider Not In System PhD IMG OUTSIDE IMAGING W /OUT INTERPRETATION Final Result documented in this encounter Visit Diagnoses Not on filedocumented in this encounter Care Teams Project Engineering Manager Relationship Specialty Start Date End Date Gloria Sheriff MD [address] [place] [address] PCP - General Internal Medicine 11/28/20 04/02/21 Reyna Bonilla NP [address] [place] [address] PCP - General Family Medicine 04/03/21 12/16/21 Reyna Bonilla NP [address] [place] [address] PCP - General Family Medicine 12/17/21 09/20/23 Nhung Garcia PA [address] [place] [address] PCP - General Physician Zinc Etcher 09/21/23 Dominic Mcgraw MD [email or web address] Historical LMR Provider 04/28/17 Sonny Bob MD [address] [place] [address] Historical LMR Provider 04/28/17 2 documented as of this encounter Additional Source Comments The information contained in this document represents components of the legal health record. It is not the complete legal health record.[facility]
--- OUTSIDE RECORDS SUMMARY | 2024-11-26 12:34 | XMS_ITS | Clinical Summary ---
Author Organization [facility] Address [address] [place] [address] Care Team Providers Care Manufacturing Finance Manager Name Role Phone Unavailable Primary Care Provider [...]
--- OUTSIDE RECORDS SUMMARY | 2024-11-26 12:34 | XMS_ITS | Encounter Summary ---
Author Organization [facility] Address [address] [place] [address] Phone Care Team Providers Care Brand Inspector Name Role Phone Dominic Mcgraw MD Unavailable [phone] Sonny Bob MD Unavailable [phone] Gloria Sheriff MD Primary Care Pro vider Reyna Bonilla NP Primary Care Provi ha Reyna Bonilla NP Primary Care Provi ha Nhung Garcia Primary Care Provider [phone] Encounter Details Date Type Department Care Team (Late st Contact Info) Description 02/18/2021 Ancillary Orders [facility],Outside Imaging [address] [place], [place] [id number] System, Provider Not In, [place] [address] Social History Tobacco Use Types Packs/Day Years [...] Description 10/24/2025 10:40 AM EDT Office Visit [facility] [address] [place] [address] [address]rd Floor, [address] [place] [address] Avelino Vizcarra MD [address] [facility], [address] [place] [address] [email or web address] documented as of this encounter Results * XR Chest Outside (No Interpretation) (10/11/2019 12:00 AM EDT) Narrative SYSTEMGENERATED, DOCUMENTATION - 02/18/2021 1:29 PM EDT This study is for PACS storage only and not for interpretation. us Provider Not In System PhD IMG OUTSIDE IMAGING W /OUT INTERPRETATION Final Result documented in this encounter Visit Diagnoses Not on filedocumented in this encounter Care Teams Brand Inspector Relationship Specialty Start Date End Date Gloria Sheriff MD [address] [place] [address] PCP - General Internal Medicine 11/28/20 04/02/21 Reyna Bonilla NP [address] [place] [address] PCP - General Family Medicine 04/03/21 12/16/21 Reyna Bonilla NP [address] [place] [address] PCP - General Family Medicine 12/17/21 09/20/23 Nhung Garcia PA [address] [place] [address] PCP - General Physician Projection Printer 09/21/23 Dominic Mcgraw MD [email or web address] Historical LMR Provider 04/28/17 Sonny Bob MD [address] [place] [address] Historical LMR Provider 04/28/17 2 documented as of this encounter Additional Source Comments The information contained in this document represents components of the legal health record. It is not the complete legal health record.[facility]
--- OUTSIDE RECORDS SUMMARY | 2024-11-26 12:34 | XMS_ITS | Clinical Summary ---
Author Organization [facility] Address [address] [place] [address] Care Team Providers Care Blade Bender Furnace Tender Name Role Phone Nhung Garcia Primary Care Provider Allergies Active Allergy Reactions Criticality Noted Date [...] complete this topic Procedures * Due to [place] Jaeger law, this organization might not be sharing negative HIV tests. Procedure Name Priority Date/Time Associated Diagnosis Comments COMPREHENSIVE METABOLIC PANEL STAT 02/20/2024 1:08 PM EDT from Last 3 Months or Most Recently Relevant to Health Maintenance Results * Due to [place] law, this organization might not be sharing negative HIV tests. * (ABNORMAL) Comprehensive Metabolic Panel (02/20/2024 1:08 PM EDT) NA 140 136 - 145 mmol/L 02/20/2024 1:37 PM EDT [facility] K 3.7 3.5 - 5.1 mmol/L 02/20/2024 1:37 PM EDT [facility] Cl 102 98 - 109 mmol/L 02/20/2024 1:37 PM EDT [facility] CO2 26 23 - 32 mmol/L 02/20/2024 1:37 PM EDT [facility] Anion Gap 16 >=0 02/20/2024 1:37 PM EDT [facility] Glucose 115(H) 60 - 99 mg/dL 02/20/2024 1:37 PM EDT [facility] Creatinine 0.77 0.50 - 1.12 mg/dL 02/20/2024 1:37 PM EDT [facility] Calcium 9.0 8.4 - 10.4 mg/dL 02/20/2024 1:37 PM EDT [facility] Total Protein 6.0(L) 6.6 - 8.7 g/dL 02/20/2024 1:37 PM EDT [facility] Albumin 3.8 3.5 - 5.0 g/dL 02/20/2024 1:37 PM EDT [facility] Bilirubin, Total 0.2 0.2 - 1.0 mg/dL 02/20/2024 1:37 PM EDT [facility] Alkaline Phosphatase 66 40 - 129 U/L 02/20/2024 1:37 PM EDT [facility] AST 15 0 - 33 U/L 02/20/2024 1:37 PM EDT [facility] ALT 22 <=33 U/L 02/20/2024 1:37 PM EDT [facility] BUN 12 8 - 23 mg/dL 02/20/2024 1:37 PM EDT [facility] eGFR 88 >=60 mL/min/1. 73m2 02/20/2024 1:37 PM EDT [facility] Comment:The estimated glomer ular filtration rate [...] - 4.2 g/dL 02/20/2024 1:37 PM EDT [facility] A/G Ratio 1.7 1.5 - 3.0 02/20/2024 1:37 PM EDT [facility] Blood Structure of peripheral vein / Unknown Venipuncture / Unknown 02/20/2024 1:08 PM EDT 02/20/2024 1:14 PM EDT us Momo Badillo MD LAB BLOOD ORDERABLES Final Result [facility] [address] [place] [address], from Last 3 Months or Most Recently Relevant to Health Maintenance Insurance [facility] MEDICAID Care Teams Blade Bender Furnace Tender Relationship Specialty Start Date End Date Nhung Garcia [address] [place] [phone] PCP - General Physician Elementary Assistant Teacher 02/20/24
== END 2024-11-26 12:45 | disposition home or self-care (01) ==
LOC: HO.HGI 12:05
PROVIDERS: PCP Physician Assistant Medical; Visit Provider Internal Medicine Gastroenterology
DX: R13.14 Dysphagia, pharyngoesophageal phase (principal)
CPT/HCPCS: 99213

== ENCOUNTER → 2024-11-26 12:04 | Outpatient (BNVA) | payer OTHER, SELFPAY | PROVIDERS: PCP Physician Assistant Medical; Visit Provider Internal Medicine Gastroenterology | DX: R13.14 Dysphagia, pharyngoesophageal phase (principal) | CPT/HCPCS: 99212 ==

== ENCOUNTER 2024-12-14 09:27 | Outpatient (AMB) | payer OTHER, SELFPAY ==
--- NOTE | 2024-12-14 09:14 | A.OFFVIS_ITS ---
VS Expanded 12/14/24 09:38 BP 139/66 Blood Pressure Location Rt brachial Blood Pressure Position Sitting Pulse 89 Pulse Source Pulse Oximeter Temp 96.7 F L Temperature Source Temporal Artery Scan Pulse Oximetry 98 Oxygen Delivery Method Room Air Height 5 ft 3 in Weight 150 lb BMI 26.6 Body Fat % 30.9 Body Fat Mass 46.2 Fat Free Mass 103.9 Visceral Fat Rating 8.0 Body Water % 48.8 Body Water Mass 73.2 Muscle Mass/Score 98.4 Basal Metabolic Rate/Score 1,386 Intake Visit Reasons: OV Hiatal Hernia - Dr. Llanes Ref. Instructional Technology Instructor Required: No Allergies clindamycin Allergy (Intermediate, Verified 12/14/24 10:17) Rash codeine Allergy (Intermediate, Verified 12/14/24 10:17) Nausea doxycycline Allergy (Intermediate, Verified 12/14/24 10:17) Rash erythromycin base Allergy (Intermediate, Verified 12/14/24 10:17) Rash vancomycin Allergy (Mild, Verified 12/14/24 10:17) Rash Medication List - Last Reconciled 12/14/24 by Real Bustamante MD albuterol sulfate 90 mcg/actuation (Ventolin HFA) 2 puffs inhalation Q4H PRN atorvastatin 40 mg PO DAILY blood sugar diagnostic (FreeStyle Lite Strips) As directed budesonide-formoterol 80-4.5 mcg/actuation (Symbicort) 1 inh inhalation BID cetirizine (Zyrtec) 10 mg PO DAILY PRN cholecalciferol (vitamin D3) 25 mcg PO DAILY cyclobenzaprine 10 mg PO BEDTIME diltiazem HCl CD (Cardizem CD) 180 mg PO DAILY enalapril maleate 5 mg PO DAILY esomeprazole magnesium 20 mg PO BID hyoscyamine sulfate 0.125 mg PO Q8-12H insulin lispro subcut levothyroxine 50 mcg PO DAILY meclizine 12.5 mg PO 3XD PRN montelukast 10 mg PO DAILY sertraline 100 mg PO DAILY sertraline 50 mg PO DAILY tiotropium bromide 2.5 mcg/actuation (Spiriva Respimat) 2 puffs inhalation DAILY trazodone 150 mg PO BEDTIME HPI Comments Details: The patient is a 59-year-old female presenting for evaluation and management of a hiatal hernia and associated esophageal symptoms. After a severe illness and hospitalization in 2018, she developed dysphagia, chest tightness, and esophageal spasms, which are exacerbated by solid foods. Despite previous notes documenting a diaphragmatic hernia repair, it is confirmed that no such surgery took place, only procedures for groin and umbilical hernias. A 2020 CAT scan showed no diaphragmatic hernia, yet an UGI from 2021 and a [address] Llanes revealed a small hiatal hernia and esophageal inflammation with disorganized peristalsis. The patient has multiple chronic conditions, including type 2 diabetes, GERD, and hypertension, managed with medications such as insulin, diltiazem, and atorvastatin. She was advised to cease Mounjaro temporarily to evaluate its effects on her symptoms, but no changes have been noted. The patient continues to have intermittent chest pain and discomfort related to eating and occasionally independently. A significant hospitalization event in her past contributes to her current state. [facility] Medical History Insulin pump in place Hx of viral pneumonia Palpitations COVID-19 vaccine series completed Dysphagia GERD (gastroesophageal reflux disease) LISSET (obstructive sleep apnea) Paroxysmal supraventricular tachycardia Vitamin D deficiency Allergic rhinitis Depression Anxiety Hypothyroidism Hyperlipidemia HTN (hypertension) Type II diabetes mellitus Surgical History (Updated 12/14/24 @ 10:25 by Real Bustamante MD) Hx of left inguinal hernia repair H/O right knee surgery History of esophagogastroduodenoscopy (EGD) Hx of shoulder surgery Hx of elbow surgery History of carpal tunnel release Hx of unilateral salpingectomy Family History Mother Diabetes High cholesterol Social History Are you a primary day care home provider to a significant other at home: No Do you presently have visiting nurse or other home services: No Alcohol intake: never Patient Tobacco Use Status: Former Tobacco user Tobacco use type: Cigarette Physical Exam Vital Signs: Last Vital Signs Temp 96.7 F L 12/14/24 09:38 Pulse 89 12/14/24 09:38 BP 139/66 12/14/24 09:38 Pulse Ox 98 12/14/24 09:38 Oxygen Delivery Method Room Air 12/14/24 09:38 BMI result Body Mass Index 26.6 GI Inspection: Yes normal to inspection (android body habitus), Yes abdominal wall ecchymosis and Yes incision (well healed) Palpation (GI): Soft to palpation Extrem General: Yes other (ecchymosis) Right upper extremity: elbow/forearm (ecchymosis) Right lower extremity: edema Left lower extremity: edema Assessment & Plan Assessment & Plan (1) Hiatal hernia: Code(s): K44.9 - Diaphragmatic hernia without obstruction or gangrene Category: Medical Plan: 1. The assessment revealed no prior diaphragmatic hernia repair, instead of groin and umbilical hernia repairs. My recommendation includes a repeat endoscopy with ARMENDARIZ probe to verify reflux correlation with symptoms. The endoscopic findings and patient-recorded symptoms will guide the decision on surgical intervention for the small hiatal hernia. Potential surgery and its benefits, typical recovery, and dietary transition phases were thoroughly discussed, including the avoidance of Mounjaro before any procedures. The patient was informed that significant relief could be anticipated from the surgical repair of the hernia. Risks, benefits, and alternatives of proposed interventions were delineated, with emphasis on quality of life and symptom management. 2. The current plan involves the suspension of Mounjaro to reassess its impact. The patient is advised to consider weight loss as a measure to alleviate symptoms, with a target of losing an additional 15-20 pounds. We discussed the dietary changes post-hiatal hernia repair surgery, which include a strict regimen of liquid diet with proteins shakes and progressive diet transition over four weeks. Acknowledge the role of continual weight monitoring and lifestyle adaptation in managing co-existing conditions.
[2024-12-14 09:38] VITALS: BP 139/66; PULSE 89; TEMP 35.9; O2SAT 98; BMI 26.6
== END 2024-12-14 10:30 | disposition home or self-care (01) ==
LOC: HO.HBS 09:28
PROVIDERS: PCP Physician Assistant Medical; Visit Provider Surgery
DX: K44.9 Diaphragmatic hernia without obstruction or gangrene (principal)
CPT/HCPCS: 99204

== ENCOUNTER → 2024-12-14 09:27 | Outpatient (BNVA) | payer OTHER, SELFPAY | PROVIDERS: PCP Physician Assistant Medical; Visit Provider Surgery | DX: K44.9 Diaphragmatic hernia without obstruction or gangrene (principal) | CPT/HCPCS: 99202 ==

== ENCOUNTER 2025-03-04 11:34 | Outpatient (AMB) | payer OTHER, SELFPAY ==
--- OUTSIDE RECORDS SUMMARY | 2025-02-27 10:00 | XMS_ITS | Encounter Summary ---
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 e of the lesser toe * Consultation (Urgent) - Closed Specialty Diagnoses / Procedures Referred By Ventura lozano Referred To Contact Podiatry / Orthopaedic Surgery Diagnoses Displaced fracture of proximal phalanx of left lesser toe(s), initial encounter for closed fracture Nhung Garcia PA [address] [place] [address] Phone: tel: fax: Theo Paris DPM [address] [address] Phone: tel: fax: Referral ID Status Reason Start Date Expiration Date V isits Requested Visits Authorized [id number] Closed Specialty Services Required 02/22/2025 02/22/2026 1 1 Encounter Details Date Type Department Care Team (Late st Contact Info) Description 02/27/2025 10:00 AM EDT Consult Orthopedic Surgery - [place] [address] [phone] Theo Paris DPM [address] [address] Displaced fracture of proximal phalanx of left lesser toe(s), initial encounter for closed fracture (Primary Dx); Controlled type 2 diabetes with neuropathy (CMS/HCC V24, CMS/HCC V28) Social History Tobacco Use Types Packs/Day Years Used Date Smoking Tobacco: Never Assessed Comments Unknown Sex and Gender Information Value Date Recorded Sex Assigned at Not on file Legal Sex Female 2:12 AM EST Gender Identity Not on file Sexual Orientation Not on file documented as of this encounter Ordered Prescriptions Prescription Sig Dispense Quantity Refills Last Filled Start Date End Date meloxicam (MOBIC) 15 mg tablet Take 1 tablet (15 mg total) by mouth 1 (one) time each day. 30 tablet 1 02/27/2025 04/28/2025 documented in this encounter Progress Notes * Theo Paris, MARIBEL - 02/27/2025 10:00 AM EDT Referring MD: Nhung Garcia PA Last PCP visit: 10/24/2024 IDENTIFIER: Gavino is a 59 y.o. year old female who presents for consultation. CC: Left foot pain HPI: 59-year-old diabetic female presents office today complaining of foot pain. Patient notes she recently hit her fifth toe on a chair in her bedroom. Patient has some swelling redness and is experiencing pain throughout the left foot all the digits. Patient has not been using a surgical shoe. Patientis here for evaluation treatment ROS: GENERAL: Pt denies nausea, fever, vomiting, chills, or shortness of breath. Pt in NAD. CARDIOLOGY: pt denies chest pain, palpitations LUNGS: pt denies shortness of breath MUSCULOSKELETAL: See HPI, otherwise no joint pain or swelling, back pain, or muscle pain. SKIN: see HPI, otherwise no lesions, rash or itching NEURO: No persistent headache, weakness or numbness The remainder of the review of systems is noncontributory PAST MEDICAL HISTORY: Patient Active Problem List Diagnosis Anxiety Asthma Bursitis of right shoulder Chronic low back pain Conversion disorder Depression Diabetes mellitus with neuropathy (CMS/HCC V24, CMS/[facility] V28) Diverticulosis Hiatal hernia with GERD History of dysphagia Hypercholesterolemia Hypertension Hypothyroidism Internal hemorrhoids Nasal septal perforation Neck pain Obesity Obstructive lung disease (CMS/HCC V24, CMS/[facility] V28) LISSET (obstructive sleep apnea) Osteoarthritis of acromioclavicular joint SOCIAL HISTORY: Social History Tobacco Use Smoking status: Not on file Smokeless tobacco: Not on file Substance Use Topics Alcohol use: Not on file ACTIVE MEDICATIONS: Outpatient Medications Marked as Taking for the 02/27/25 encounter (Consult) with Theo Paris DPM Medication Sig Dispense Refill albuterol HFA (PROAIR HFA ; PROVENTIL HFA ; VENTOLIN HFA) 90 mcg/actuation inhaler Inhale 2 puffs by mouth every 6 (six) hours if needed for wheezing. blood-glucose sensor (DEXCOM G6 SENSOR MISC) blood-glucose transmitter (Dexcom G6 Transmitter) device blood-glucose,range technician,cont (DEXCOM G4 SAP ARCHITECT MISC) budesonide-formoteroL (SYMBICORT) 80-4.5 mcg/actuation inhaler Inhale 2 puffs by mouth 2 (two) times a day. Rinse mouth with water after use to reduce aftertaste and incidence of candidiasis. Do not swallow. cyclobenzaprine (FLEXERIL) 10 mg tablet Take 1 tablet (10 mg total) by mouth 3 (three) times a day if needed for muscle spasms. dilTIAZem CD (CARDIZEM CD) 180 mg 24 hr capsule Take 1 capsule (180 mg total) by mouth 1 (one) timeeach day. enalapril (VASOTEC) 5 mg tablet Take 1 tablet (5 mg total) by mouth 1 (one) time each day. esomeprazole (NexIUM) 20 mg packet Take 20 mg by mouth 1 (one) time each day before breakfast. glucagon (Baqsimi) 3 mg/actuation nasal spray Administer 3 mg into one nostril. hyoscyamine (LEVSIN) 0.125 mg/5 mL elixir Take 5 mL (0.125 mg total) by mouth every 4 (four) hours. ibuprofen (ADVIL,MOTRIN) 800 mg tablet Take 1 tablet (800 mg total) by mouth every 6 (six) hours ifneeded for mild pain. insulin lispro 100 unit/mL injection Inject under the skin 3 (three) times a day before meals. -Administer within 15 minutes of a meal insulin lispro 100 unit/mL injection Inject under the skin 3 (three) times a day before meals. -Administer within 15 minutes of a meal montelukast (SINGULAIR) 10 mg tablet Take 1 tablet (10 mg total) by mouth at bedtime. rosuvastatin (CRESTOR) 20 mg tablet Take 1 tablet (20 mg total) by mouth 1 (one) time each day. sertraline (ZOLOFT) 25 mg tablet Take 1 tablet (25 mg total) by mouth 1 (one) time each day. tirzepatide (Mounjaro) 5 mg/0.5 mL injection Inject 0.5 mL (5 mg total) under the skin every 7 (seven) days. traZODone (DESYREL) 150 mg tablet Take 1 tablet (150 mg total) by mouth at bedtime. venlafaxine (EFFEXOR) 37.5 mg tablet Take 1 tablet (37.5 mg total) by mouth 2 (two) times a day. ALLERGIES: Doxycycline, Clindamycin, Codeine, Doxycycline calcium, Erythromycin, and Vancomycin PHYSICAL EXAM: There were no vitals taken for this visit. PODIATRIC EXAMINATION: GENERAL: Patient appears well nourished, with NAD. VASCULAR: Dorsalis pedis pulses are 1/4 bilaterally and Posterior tibial pulses are 2/4 bilaterally. Capillary filling time within normal limits the digits. No pallor on elevation or rubor on dependency. Positive hair growth. No varicosities. Denies rest pain or claudication pain. NEUROLOGICAL: Sharp/dull sensation intact, protective sensation intact on [place]. Peripheral neuropathy throughout the feet bilaterally ORTHOPEDIC: Good muscle strength 5/5 of all flexors and extensors. Dorsi flexion of ankle ,10 degrees, plantar flexion WNL. No muscle atrophy. Swelling and redness over the lateral left fifth digit with pain on palpation. Slightly increased pain between the metatarsal heads of the 2nd and 3rd fourth and DERMATOLOGICAL:.No masses or skin lesions noted. Normal skin temperature, normal skin turgor. BIOMECHANICS: STJ ROM wnl, MTJ ROM wnl, 1st MPJ ROM wnl. IMAGING: Radiolucency to the base of the proximal phalanx of the left fifth digit. No other fractures and minimal signs of arthritis IMPRESSION: 1. Displaced fracture of proximal phalanx of left lesser toe(s), initial encounter for closed fracture 2. Controlled type 2 diabetes with neuropathy ([facility] V24, [facility] V28) PLAN: Pt was seen and examined, history reviewed. Patient found to have a fracture of the proximal phalanx of the left fifth toe Patient at this time would benefit from immobilization of the fracture to aid in healing of the area. Patient given surgical shoe surgical Patient understands that they will be in surgical boot for 4-6 weeks pending serial radiographs andfracture healing. Patient is to be PWB with the boot. Patient to use roel bandage to help manage swelling. Ice and elevate while at rest. Oral analgesics such as Tylenol and Aleve can help with pain. All questions answered. RTC 3-4 weeks. Patient was encouraged to limit her sugar level 200 mg/dL today in order to limit neuropathic flareups and sensitivity in the nerves Theo Paris DPM documented in this encounter Plan of Treatment Upcoming Encounters Date Type Department Care Team (Late st Contact Info) Description 04/11/2025 1:30 PM EDT Office Visit Orthopedic Surgery - [place] [address] [phone] Theo Paris DPM [address] [phone] documented as of this encounter Results * XR Foot 3+ Views Left (02/27/2025 10:23 AM EDT) Anatomical Region Laterality Modality Lower Extremities, Foot Left Computed Radiography Narrative 02/27/2025 12:24 PM EDT Left foot 3 views nonweightbearing: Radiolucency to the base of the proximal phalanx of the left fifth digit. No other fractures and minimal signs of arthritis hTeo Paris DPM IMG XR PROCEDURES Edited Re sult - Final documented in this encounter Visit Diagnoses Diagnosis Displaced fracture of proximal phalanx of left lesser toe(s), initial encounter for closed fracture- Primary Controlled type 2 diabetes with neuropathy (CMS/HCC V24, CMS/HCC V28) Type II or unspecified type diabetes mellitus with neurological manifestations, not stated as uncontrolled documented in this encounter Historical Medications * This list may reflect changes made after this encounter. albuterol HFA (PROAIR HFA ; PROVENTIL HFA ; VENTOLIN HFA) 90 mcg/actuation inhaler Inhale 2 puffs by mouth every 6 (six) hours if needed for wheezing. traZODone (DESYREL) 150 mg tablet Take 1 tablet (150 mg total) by mouth at bedtime. sertraline (ZOLOFT) 25 mg tablet Take 1 tablet (25 mg total) by mouth 1 (one) time each day. esomeprazole (NexIUM) 20 mg packet Take 20 mg by mouth 1 (one) time each day before breakfast. tirzepatide (Mounjaro) 5 mg/0.5 mL injection Inject 0.5 mL (5 mg total) under the skin every 7 (seven) days. montelukast (SINGULAIR) 10 mg tablet Take 1 tablet (10 mg total) by mouth at bedtime. insulin lispro 100 unit/mL injection Inject under the skin 3 (three) times a day before meals. -Administer within 15 minutes of a meal ibuprofen (ADVIL,MOTRIN) 800 mg tablet Take 1 tablet (800 mg total) by mouth every 6 (six) hours if needed for mild pain. hyoscyamine (LEVSIN) 0.125 mg/5 mL elixir Take 5 mL (0.125 mg total) by mouth every 4 (four) hours. insulin lispro 100 unit/mL injection Inject under the skin 3 (three) times a day before meals. -Administer within 15 minutes of a meal enalapril (VASOTEC) 5 mg tablet Take 1 tablet (5 mg total) by mouth 1 (one) time each day. venlafaxine (EFFEXOR) 37.5 mg tablet Take 1 tablet (37.5 mg total) by mouth 2 (two) times a day. dilTIAZem CD (CARDIZEM CD) 180 mg 24 hr capsule Take 1 capsule (180 mg total) by mouth 1 (one) time each day. blood-glucose transmitter (Dexcom G6 Transmitter) device blood-glucose sensor (DEXCOM G6 SENSOR MISC) blood-glucose,rec eiver,cont (DEXCOM G4 SAP ARCHITECT MISC) cyclobenzaprine (FLEXERIL) 10 mg tablet Take 1 tablet (10 mg total) by mouth 3 (three) times a day if needed for muscle spasms. rosuvastatin (CRESTOR) 20 mg tablet Take 1 tablet (20 mg total) by mouth 1 (one) time each day. budesonide-formot [place] (SYMBICORT) 80-4.5 mcg/actuation inhaler Inhale 2 puffs by mouth 2 (two) times a day. Rinse mouth with water after use to reduce aftertaste and incidence of candidiasis. Do not swallow. glucagon (Baqsimi) 3 mg/actuation nasal spray Administer 3 mg into one nostril. added in this encounter Orders Outpatient Referral Count Last Ordered Date Fir st Ordered Date AMB REFERRAL TO PODIATRY 1 02/27/2025 documented in this encounter Care Teams Needle Loom Setter Relationship Specialty Start Date End Date Nhung Garcia PA [address] [place] [address] PCP - General Physician Commissioner [employer] 02/22/25 documented as of this encounter
--- NOTE | 2025-03-04 11:35 | MHC.OFFVIS ---
Vital Signs 03/04/25 11:44 Height 5 ft 3 in Weight 151 lb BMI 26.7 BP 138/73 Blood Pressure Location Rt brachial Position Sitting Pulse 89 Intake Visit Reasons: inguinal hernia Intake Note: Patient here for evaluation of hernia. Hx of LIH and Umbilical hernia repair 05-10-2024. 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 Pain comes and goes. Patient Intake Coordinator Required: No Accompanied by: Self / Same As Patient Allergies clindamycin Allergy (Intermediate, Verified 03/04/25 11:40) Rash codeine Allergy (Intermediate, Verified 03/04/25 11:40) Nausea doxycycline Allergy (Intermediate, Verified 03/04/25 11:40) Rash erythromycin base Allergy (Intermediate, Verified 03/04/25 11:40) Rash vancomycin Allergy (Mild, Verified 03/04/25 11:40) Rash Medication List - Last Reconciled 03/04/25 by Sam Dukes MD albuterol sulfate 90 mcg/actuation (Ventolin HFA) 2 puffs inhalation Q4H PRN blood sugar diagnostic (FreeStyle Lite Strips) As directed budesonide-formoterol 80-4.5 mcg/actuation (Symbicort) 1 inh inhalation BID cetirizine (Zyrtec) 10 mg PO DAILY PRN cholecalciferol (vitamin D3) 25 mcg PO DAILY cyclobenzaprine 10 mg PO BEDTIME diltiazem HCl CD (Cardizem CD) 180 mg PO DAILY enalapril maleate 5 mg PO DAILY esomeprazole magnesium 20 mg PO BID hyoscyamine sulfate 0.125 mg PO Q8-12H insulin lispro subcut levothyroxine 50 mcg PO DAILY meclizine 12.5 mg PO 3XD PRN montelukast 10 mg PO DAILY tiotropium bromide 2.5 mcg/actuation (Spiriva Respimat) 2 puffs inhalation DAILY tirzepatide (Mounjaro) mg subcut trazodone 150 mg PO BEDTIME venlafaxine ER (Effexor XR) 37.5 mg PO DAILY HPI HPI inguinal hernia: Details: 59 year old female here for a question of a recurrent left inguinal hernia. She had undergone repair of umbilical hernia and left inguinal hernia with mesh by Dr. Bray last year. She says that sometime in [place], 2025, she was lifting some objects and she noticed this sharp pain on the left inguinal hernia repair site. She thinks that there may be a small lump in the area. She was concerned about a recurrence so she scheduled a follow up here in the office She says she continues to have this burning pain in the area. [facility] Medical History Left groin pain Insulin pump in place Hx of viral pneumonia Palpitations COVID-19 vaccine series completed Dysphagia GERD (gastroesophageal reflux disease) LISSET (obstructive sleep apnea) Paroxysmal supraventricular tachycardia Vitamin D deficiency Allergic rhinitis Depression Anxiety Hypothyroidism Hyperlipidemia HTN (hypertension) Type II diabetes mellitus Surgical History Hx of left inguinal hernia repair H/O right knee surgery History of esophagogastroduodenoscopy (EGD) Hx of shoulder surgery Hx of elbow surgery History of carpal tunnel release Hx of unilateral salpingectomy Family History Mother Diabetes High cholesterol Social History Are you a primary care transitions manager to a significant other at home: No Do you presently have visiting nurse or other home services: No Alcohol intake: never Patient Tobacco Use Status: Former Tobacco user Tobacco use type: Cigarette Review of Systems Const Denies chills and Denies fever(s) Card Denies chest pain, Denies dyspnea and Denies dyspnea on exertion Resp Denies cough, Denies dyspnea and Denies dyspnea on exertion GI Denies hematochezia and Denies change in bowel habits Denies hematuria Musc Denies back pain and Denies limited range of motion Neuro Denies focal weakness and Denies convulsions Psych Denies depression and Denies mood swings Physical Exam Const General: comfortable and no acute distress Orientation/consciousness: patient oriented x3 Neck Neck: Yes no lymphadenopathy Resp Auscultation: clear to auscultation bilaterally Cardio Rhythm: regular rhythm GI Other: No obvious palpable mass on the left groin area even with Valsalva Palpation (GI): Soft to palpation, nontender and no guarding Neuro General: patient oriented x3 Assessment & Plan Assessment & Plan (1) Left groin pain: Code(s): R10.32 - Left lower quadrant pain Category: Medical Plan: She describes this pain on the previous left inguinal hernia repair site done by Dr. Bray. I do not feel an obvious hernia at this time. I am going to order for a CAT scan to rule out any occult hernia. I will see her in the office to discuss the findings. She is comfortable with the plan and she understands this well. Coding Level of Care Code Est Pt Level 3 (53750) Diagnoses Left groin pain R10.32
[2025-03-04 11:44] VITALS: BP 138/73; PULSE 89; BMI 26.7
--- OUTSIDE RECORDS SUMMARY | 2025-03-04 13:06 | XMS_ITS | Clinical Summary ---
Author Organization [facility] Address [address] [place] [address] Care Team Providers Care Well Puller Name Role Phone Unavailable Primary Care Provider [...]
--- OUTSIDE RECORDS SUMMARY | 2025-03-04 13:06 | XMS_ITS | Clinical Summary ---
Author Organization [facility] Address [address] [place] [address] Care Team Providers Care Diagnostic Sales Specialist Name Role Phone Nhung Garcia Primary Care Provider [phone] Allergies Active Allergy Reactions Criticality Noted Date [...] 65 02/20/2024 3:00 PM EDT Temperature 36.5 C (97.7 F) 02/20/2024 1:05 PM EDT Respiratory Rate 17 02/20/2024 3:00 PM EDT [...] Metabolic Panel 02/19/2025 02/20/2024, 021 Influenza Vaccine (#1) 2025 , 03/31/2020, 04/27/2019, Additional history exists Pneumococcal Vaccine: 50+ Years (3 of 3 - PCV20 or PCV21) 05/12/2026 05/12/2021, 10/27/2017 Hepatitis B Vaccines Aged Out No long er eligible based on patient's age to complete this topic Procedures * Due to [place] law, this organization might not be sharing negative HIV tests. Procedure Name Priority Date/Time Associated Diagnosis Comments COMPREHENSIVE METABOLIC PANEL STAT 02/20/2024 1:08 PM EDT from Last 3 Months or Most Recently Relevant to Health Maintenance Results * Due to [place] law, this organization might not be sharing negative HIV tests. * (ABNORMAL) Comprehensive Metabolic Panel (02/20/2024 1:08 PM EDT) NA 140 136 - 145 mmol/L 02/20/2024 1:[address] [facility] K 3.7 3.5 - 5.1 mmol/L 02/20/2024 1:[address] [facility] Cl 102 98 - 109 mmol/L 02/20/2024 1:[address] [facility] CO2 26 23 - 32 mmol/L 02/20/2024 1:[address] [facility] Anion Gap 16 >=0 02/20/2024 1:[address] [facility] Glucose 115(H) 60 - 99 mg/dL 02/20/2024 1:[address] [facility] Creatinine 0.77 0.50 - 1.12 mg/dL 02/20/2024 1:[address] [facility] Calcium 9.0 8.4 - 10.4 mg/dL 02/20/2024 1:[address] [facility] Total Protein 6.0(L) 6.6 - 8.7 g/dL 02/20/2024 1:[address] [facility] Albumin 3.8 3.5 - 5.0 g/dL 02/20/2024 1:[address] [facility] Bilirubin, Total 0.2 0.2 - 1.0 mg/dL 02/20/2024 1:[address] [facility] Alkaline Phosphatase 66 40 - 129 U/L 02/20/2024 1:[address] [facility] AST 15 0 - 33 U/L 02/20/2024 1:[address] [facility] ALT 22 <=33 U/L 02/20/2024 1:[address] [facility] BUN 12 8 - 23 mg/dL 02/20/2024 1:[address] [facility] eGFR 88 >=60 mL/min/1. 73m2 02/20/2024 1:[address] [facility] Comment:The estimated glomer ular filtration rate [...] 1:[address] [facility] A/G Ratio 1.7 1.5 - 3.0 02/20/2024 1:[address] [facility] Blood Structure of peripheral vein / Unknown Venipuncture / Unknown 02/20/2024 1:08 PM EDT 02/20/2024 1:14 PM EDT us Momo Badillo MD LAB BLOOD ORDERABLES Final Result [facility] [address] [place] [address], from Last 3 Months or Most Recently Relevant to Health Maintenance Insurance [facility] MEDICAID Care Teams Diagnostic Sales Specialist Relationship Specialty Start Date End Date Nhung Garcia [address] [place] [address] PCP - General Physician Railroad Firer 02/20/24
--- OUTSIDE RECORDS SUMMARY | 2025-03-04 13:06 | XMS_ITS | Encounter Summary ---
Author Organization [facility] Address [address] [facility] [address] [place] [address] Phone Care Team Providers Care Entry Level Machine Operator Name Role Phone Dominic Mcgraw MD Unavailable [phone] Sonny Bob MD Unavailable [phone] Gloria Sheriff MD Primary Care Pro vider Reyna Bonilla NP Primary Care Provi ha Reyna Bonilla NP Primary Care Provi ha Nhung Garcia Primary Care Provider [phone] Encounter Details Date Type Department Care Team (Late st Contact Info) Description 03/18/2021 Ancillary Orders [facility],Outside Imaging [address] [place] [address] System, Provider Not In, PhD [address] [address] Social History Tobacco Use Types Packs/Day Years [...] Description 10/24/2025 10:40 AM EDT Office Visit [facility] [address], [address] [place] [address] Avelino Vizcarra MD [address] [facility], [address] [place] [address] [email or web address] documented as of this encounter Results * CT Chest Outside (No Interpretation) (01/14/2021 12:00 AM EDT) Narrative SYSTEMGENERATED, DOCUMENTATION - 03/18/2021 9:29 AM EDT This study is for PACS storage only and not for interpretation. us Provider Not In System PhD IMG OUTSIDE IMAGING W /OUT INTERPRETATION Final Result documented in this encounter Visit Diagnoses Not on filedocumented in this encounter Care Teams Entry Level Machine Operator Relationship Specialty Start Date End Date Gloria Sheriff MD [address] [place] [address] PCP - General Internal Medicine 11/28/20 04/02/21 Reyna Bonilla NP [address] [place] [address] PCP - General Family Medicine 04/03/21 12/16/21 Reyna Bonilla NP [address] [place] [address] PCP - General Family Medicine 12/17/21 09/20/23 Nhung Garcia PA [address] [place] [address] PCP - General Physician Graduate Student 09/21/23 Dominic Mcgraw MD [email or web address] Historical LMR Provider 04/28/17 Sonny Bob MD [address] [place] [address] Historical LMR Provider 04/28/17 2 documented as of this encounter Additional Source Comments The information contained in this document represents components of the legal health record. It is not the complete legal health record.[facility]
--- OUTSIDE RECORDS SUMMARY | 2025-03-04 13:06 | XMS_ITS | Patient Health Record ---
Author Organization [facility] Address [address] [place] [address] Care Team Providers Care Manager Security And Safety Name Role Phone Dominic Pack MD Primary Care Provider Kamari Caro Unavailable [phone] Allergies Allergen (clinical drug ingredient) Drug/Non Drug Allergy documented on EMR Reaction Allergy Type Onset Date Status codeine codeine vomit Drug Allergy Active Reason For Referral No Information Medications Medication SIG (Take, Route, Frequency, Duration) Notes Start Date End Date Status Zocor Active Synthroid Active metFORMIN HCl Active Vitamin D Active Cardizem 180mg Activ e Enalapril Maleate Ac tive Multi Vitamin/Minerals Active Cyclobenzaprine Comfort Pac Active ZyrTEC Active Citalopram & Diet Manage Prod Active Problems Problem Type SNOMED Code ICD Code Onset Dates Problem Status W/U Status Risk Notes Problem Diabetic - NIDDM/Neuropat hy (250.60) Active confirmed Plan Of Treatment Pending Test Test Name Order Date X ray : Foot, left 2V 06/09/2011 X ray : Foot, right 2V 06/09/2011 Insurance Providers Payer Name Payer Address Payer Phone Subscriber Number Group Number Insured Name Patient Relationship to Insured Coverage Start Date Coverage End Date [facility] [address] [place] [address] [phone] [id number] Self - patient is the insured Medical (General) History Medical History History ICD Code Arthritis back, hip, knee pain diabetic epilepsy headaches/migraines hypertension neuropathy poor circulation sinus conditions thyroid disorder measles chicken pox transfusions Surgical History Surgery Date(Month/Year) eptopic
== END 2025-03-04 11:50 | disposition home or self-care (01) ==
LOC: HO.HGS 11:35
PROVIDERS: PCP Physician Assistant Medical; Visit Provider Surgery
DX: R10.32 Left lower quadrant pain (principal)
CPT/HCPCS: 99213

== ENCOUNTER → 2025-03-04 11:34 | Outpatient (BNVA) | payer OTHER, SELFPAY | PROVIDERS: PCP Physician Assistant Medical; Visit Provider Surgery | DX: R10.32 Left lower quadrant pain (principal) | CPT/HCPCS: 99212 ==